=== PATIENT | male | born 1940 | race Caucasian/White ===

== ENCOUNTER 2016-08-31 17:37 | Inpatient (IN) | payer MEDICARE ==
[~2016-08-31] VITALS: Ht 180.3 cm; Wt 90.3 kg
[~2016-08-31 17:37] MED LIST: AMLO5TAB2 PO; ASPI-973 PO; ATOR20TA65 PO; CHOL200047 PO; CYA1000I IM; HAL5 PO; HYDR-4003 PO; LISI-567 PO; METO25TA6 PO; TERB250T4 PO
[2016-08-31 17:47] VITALS: BP 135/64; RESP 21; O2SAT 92
[2016-08-31 17:56] LABS: BASOPHILS % (AUTO) 0 % (0-3); EOSINOPHILS % (AUTO) 0.5 % (0-5); MONOCYTES % (AUTO) 4.4 % (4-12); Mean Corpuscular Hemoglobin 29.6 pg (27.0-35.0); Mean Corpuscular Volume 88.1 fL (81-100); NEUTROPHILS % (AUTO) 90.7 % (40-74); Platelet Count 250 bil/L (150-400)
--- NOTE | 2016-08-31 18:17 | DRSVH ---
PROCEDURE: X-RAY CHEST ONE VIEW, PORTABLE ([id number]) INDICATIONS: FEVER, SOB TECHNIQUE: One view of the chest was acquired. COMPARISON: [facility], CR, XR CHEST 1VW (PORTABLE), 07/05/2016, 17:06. FINDINGS: Surgical changes and devices: None. Lungs and pleura: No pleural effusions or pneumothorax. Lungs are clear. Mediastinum: Mediastinal contours appear normal. Heart size is normal. Bones and chest wall: No suspicious bony lesions. Overlying soft tissues appear unremarkable. IMPRESSION: No acute cardiopulmonary findings. Dictated by: Susie Rod M.D. on 08/31/2016 at 18:14 Approved by: Susie Rod M.D. on 08/31/2016 at 18:15
[2016-08-31 18:30] LABS: Magnesium 1.5 mg/dL (1.6-2.6)
--- NOTE | 2016-08-31 18:44 | ED.REPORT ---
HPI-Dyspnea / Wheezing Date of Service Aug 31, 2016 ED Provider: Geo Adames MD Pt is a 76 y.o. male with a hx of Pipestone's, [place], and HTN who presents to the ED via EMS accompanied by his from [facility] with a fever onset today. Associated cough and weakness. Pt denies chest pain or discomfort, nausea, sore throat, rhinorrhea, dysuria, and vomiting. states that she went to see him today while he was in speech therapy and the speech therapist noticed that he was diaphoretic. Nursing staff later noted a fever and called for transport to ED. states that pt's roommate has had a recent cough. Nursing Notes Stated Complaint: FEVER,HYPOXIA Chief Complaint: Respiratory Complaints Nursing Notes Reviewed: Yes ([employer] not reconciled) Allergies: Coded Allergies: morphine (Verified Allergy, Unknown, 08/31/16) niacin (Verified Allergy, Unknown, 08/31/16) Scheduled Amlodipine (Amlodipine) 5 Mg Tablet 10 MG PO DAILY Aspirin (Aspirin) 81 Mg Tablet 81 MG PO DAILY Atorvastatin Calcium (Atorvastatin Calcium) 20 Mg Tablet 20 MG PO HS Cholecalciferol (Vitamin D3) (Vitamin D3) 2,000 Unit Capsule 2,000 UNIT PO DAILY Cyanocobalamin (Cyanocobalamin Injection) 1,000 Mcg/1 Ml Vial 1,000 MCG IM Monthly Haloperidol (Haloperidol) 5 Mg Tablet 2.5 MG PO BID Lisinopril (Lisinopril) 20 Mg Tablet 20 MG PO BID Metoprolol Tartrate (Metoprolol Tartrate) 25 Mg Tablet 25 MG PO BID Terbinafine (Lamisil) 250 Mg Tablet 250 MG PO DAILY Scheduled PRN Hydrocodone-Acetaminophen 5-325 mg (Hydrocodone-Acetaminophen 5-325 mg) 1 Each Tablet 1-2 TABLET PO Q4H PRN PRN For Moderate Pain General Time Seen by MD: 17:56 Transferred From: prison Chief Complaint Other (Fever) Hx Obtained From: Patient, Spouse Arrived By: Ambulance Sudden in Onset?: Yes Onset Occurred: 1 - 4 hours ago Symptom Duration: Since onset Past Medical History 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 GI: Denies: Nausea, Vomiting Male: Denies Dysuria Physical Exam Initial Vital Signs Vital Signs (First) Date Time Temp Pulse Resp B/P Pulse Ox O2 Delivery O2 Flow Rate FiO2 08/31/16 17:47 40.1 21 135/64 92 Nasal Cannula 1.5 08/31/16 19:54 72 Initial VS: Reviewed, Vital signs abnormal Head / Eyes: Atraumatic, Normocephalic Extremities: Vascular intact Skin: Warm, Dry, No cyanosis General/Constitutional: Awake, Alert Appearance / Presentation: Positive: Ill appearing/not toxic Weak appearing Neck: Atraumatic Respiratory / Chest: Atraumatic Rales / Rhonchi: Positive: Rhonchi diffuse No dyspnea present during examination Cardiovascular: Heart rate NL, Regular rhythm, Heart sounds NL Lower Ext Edema: Positive: Pitting, Right 1+ Abdomen: Atraumatic, Soft, Non-tender, No distention Lower Extremity / Pelvis / MS: Atraumatic Left leg in splint following recent surgery Speech: Positive: Garbled (Baseline, due to Pipestone's) Pt is weak at baseline due to Dona's Interpretation & Diagnostics Lab Results Interpretation Result Diagram: 08/31/16172908/31/16 173 Test 08/31/16 17:30 08/31/16 17:45 08/31/16 20:00 White Blood Count 16.9th/mm3 (3.8-10.1) Red Blood Count 4.63mil/mm3 (4.40-5.80) Hemoglobin 13.7g/dL (13.8-17.2) Hematocrit 40.8% (41.0-50.0) Mean Corpuscular Volume 88.1fL (81-100) Mean Corpuscular Hemoglobin 29.6pg (27.0-35.0) Mean Corpuscular Hemoglobin Concent 33.6% (32.0-37.0) Red Cell Distribution Width 13.4% (12.3-15.4) Platelet Count 250bil/L (150-400) Neutrophils (%) (Auto) 90.7% (40-74) Lymphocytes (%) (Auto) 4.1% (14-46) Monocytes (%) (Auto) 4.4% (4-12) Eosinophils (%) (Auto) 0.5% (0-5) Basophils (%) (Auto) 0% (0-3) Sodium Level 141mEq/L (134-144) Potassium Level 4.1mEq/L (3.5-5.2) Chloride Level 103mEq/L (97-108) Carbon Dioxide Level 22mmol/L (18-29) Blood Urea Nitrogen 23mg/dL (8-27) Creatinine 1.13mg/dL (0.76-1.27) Estimat Glomerular Filtration Rate 67mL/min (>59) Glucose Level 143mg/dL (60-99) Calcium Level 8.6mg/dL (8.5-10.1) Total Bilirubin 0.5mg/dL (0.0-1.2) Aspartate Amino Transf (AST/SGOT) 12U/L (0-50) Alanine Aminotransferase (ALT/SGPT) 18U/L (0-44) Alkaline Phosphatase 139U/L (25-160) Total Protein 6.4g/dL (6.4-8.4) Albumin 3.6g/dL (3.4-5.0) D-Dimer 2.1mg/L (<0.50) Urine Color Yellow (YELLOW) Urine Appearance Cloudy (CLEAR,HAZY) Urine pH 6.0 (5.0-8.0) Urine Specific [place] 1.020 (1.003-1.035) Urine Protein 30mg/dL (NEG,TRACE) Urine Glucose (UA) Negativemg/dL (NEGATIVE) Urine Ketones Negativemg/dL (NEGATIVE) Urine Occult Blood Moderate (NEGATIVE) Urine Nitrite Positive (NEGATIVE) Urine Bilirubin Negative (NEGATIVE) Urine Urobilinogen Normalmg/dL (NORMAL) Urine Leukocyte Esterase Large (NEGATIVE) Urine RBC 3-10/hpf (0-2) Urine WBC >50/hpf (0-5) Urine Epithelial Cells Occasional/hpf (NONE-MOD) Urine Crystals None seen (NONE SEEN) Urine Bacteria Moderate/hpf (NONE-FEW) Urine Hyaline Casts None/lpf (NONE) Urine Granular Casts None seen (NONE SEEN) Urine Waxy Casts None seen (NONE SEEN) Urine Red Blood Cell Casts None seen (NONE SEEN) Urine White Blood Cell Casts None seen (NONE SEEN) Urine Mucus Present (None Seen) Urine Trichomonas None seen (NONE SEEN) Urine Yeast None (NONE SEEN) Urinalysis Comment None Urine Culture Reflexed Indicated Lab Results Interpretation: cBC positive leukocytosis CMP normal Influenza negative Blood cultures pending D-dimer positive Activity as significant General Lab Results Interp 1: Labs reviewed X-Ray Chest Interpretation Chest Xray Interpretation: IMPRESSION: No acute cardiopulmonary findings. Dictated by: Susie Rod M.D. on 08/31/2016 at 18:14 Approved by: Susie Rod M.D. on 08/31/2016 at 18:15 CT Chest Interpretation IMPRESSION: 1. No acute pulmonary embolus. 2. Masslike consolidation at the left lung base. Differential considerations include infection and neoplasm. Short interval followup is recommended. If clinically indicated, this lesion is likely amenable to CT-guided percutaneous biopsy. 3. Annuloaortic ectasia. This is corroborated by echocardiogram dated 07/06/16. Dictated by: Susie Rod M.D. on 08/31/2016 at 21:05 Approved by: Susie Rod M.D. on 08/31/2016 at 21:16 Re-Eval/Medical Decision Med Decision/Clinical Course This is a 76-year-old male was recently hospitalized for surgical repair of the left lower extremity fractures requiring a prison facility, he also has Dona's with as a mechanical diet. His reports he developed a cough recently, has a roommate with a hacking cough, and alkaline phosphatase fever and shortness of breath and global weakness. He is febrile, mildly hypoxic often but not hypotensive. He appears for telemetry fatigued and moderately ill. Does have swelling of both legs, his left legs in a splint. Chest x-ray did not reveal no overt abnormality per the radiologist. Blood work is no leukocytosis. He also has an elevated d-dimer, in the setting of recent surgery, immobility, hospitalization, leg swelling-a CT was obtained. Suspicious for pneumonia, although neoplasm cannot be excluded. The patient was covered with empiric antibiotics and given his hospitalization, prison facility stay, risk factors-he is being treated for healthcare associated pneumonia coverage, and is being admitted for continued management. The case have been discussed with the hospitalist. Source of Hx: Old records, EMS Consultation : Referral / Consult Name: Gloria Orellana MD Call Returned at: 19:42 Brim Flexer: Accepts admit Note: Discussed pt condition. Dr. Orellana accepts admit. She recommends zosyn, vancomycin, and levaquin. Counseled Regarding: Diagnosis, Lab results Discharge & Departure Impression: Primary Impression: Pneumonia Pneumonia type: due to unspecified organism Laterality: unspecified laterality Lung location: unspecified part of lung Qualified Code: B99.9 - Unspecified infectious disease Additional Impressions: Cough Fever Fever type: unspecified Qualified Code: R50.9 - Fever, unspecified Disposition: ADMITTED TO HOSPITAL Discharge Condition All VS Reviewed: Yes Condition: Stable Referrals: Michael Spencer MD (PCP) Scribe Attestation Portions of this note were transcribed by Jacinto Voss. I, Dr. Adames personally performed the history, physical exam and medical decision-making; I reviewed and confirmed the accuracy of the information in the transcribed note. Signed by: Rylee Roes, 08/31/2016 and 2126. copies to: Michael Spencer MD, Matthew F MD Aug 31, 2016 18:44 JACINTO VOSS Aug 31, 2016 18:55
[2016-08-31 18:54] LABS: TROPONIN T < 0.010 ug/L (0.0-0.011)
[2016-08-31] MEDS ORDERED: cefTRIAXone Inj 2,000 MG in Dextrose 5% Minibag Plus 50 ML IV ONE (19:10)
[2016-08-31] MEDS ORDERED: Magnesium Sulf 2 Gm/50mL Water 2 GM in IV Premix 1 EACH IV ONE (19:20)
[2016-08-31] MEDS ORDERED: Vancomycin Dose per Pharmacist XX ONE (19:45)
[2016-08-31] MEDS ORDERED: Piperacillin-Tazo 3.375 Gm Inj 3.375 GM in Dextrose 5% Minibag Plus 50 ML IV ONE (19:45)
[2016-08-31] MEDS ORDERED: levoFLOXacin Inj 500 MG in IV Premix 1 EACH IV ONE (19:45)
[2016-08-31 19:54] VITALS: BP 121/60; PULSE 72; RESP 25; O2SAT 94
--- NOTE | 2016-08-31 19:59 | PCM.CONPHA ---
Subjective Requesting Provider: Geo Adames MD Reason for Pharmacy Consult: Vancomycin Dosing Assessment/Plan Assessment/Plan Vancomycin per pharmacy for HCAP in [facility] resident in conjunction with Zosyn and levofloxacin in the ER setting. Vancomycin 20mg/kg xrhceca=1040wa IV x 1. Wt=90K. Pharmacy will follow if vancomycin is continued as inpatient. Jasmina Mcpherson [facility] Aug 31, 2016 19:59
[2016-08-31] MEDS ORDERED: Vancomycin Inj 1,750 MG in 0.9% Sodium Chloride 500 ML IV ONE (20:00)
[2016-08-31] MEDS ORDERED: Albuterol 2.5 mg/3 mL Inhalation Solution NEB PRN (20:45)
[2016-08-31 20:58] VITALS: BP 104/58; PULSE 76; RESP 21; O2SAT 95
--- NOTE | 2016-08-31 21:09 | PCM.HPMED ---
Subjective Date of Service Aug 31, 2016 Primary Provider: Admitting Physician: Gloria Orellana MD Primary Care Physician: Michael Spencer MD Attending Physician: Gloria Orellana MD Admit Status: From the Emergency Department, Full Admit, [facility] Telemetry Chief Complaint: Fevers cough History of Present Illness: This is a 76-year-old male who has a history of [place]'s chorea, [place] hypertension who presented to the emergency room from [facility]. He had a fever today also over the past 2 days has been having cough with increasing lethargy and weakness. Patient denies any chest pain. Denies any head congestion or postnasal drainage. notes that he has a [facility]mate [facility] who recently has been having similar symptoms with a cough. Patient to get a flu shot this year. His evaluation in the emergency room includes a white count of 16.9 with 91% polys chest x-ray at this point did not show any acute abnormalities. His fever was up to 40.1 O2 sat was 92% on 1.5 L nasal cannula with a respiratory rate of 21 and a blood pressure 135/64. Review of Systems: All other review of systems reviewed and are negative except for as in history of present illness Allergies Coded Allergies: morphine (Verified Allergy, Unknown, 08/31/16) niacin (Verified Allergy, Unknown, 08/31/16) Home Medications Scheduled Amlodipine (Amlodipine) 5 Mg Tablet 10 MG PO DAILY Aspirin (Aspirin) 81 Mg Tablet 81 MG PO DAILY Atorvastatin Calcium (Atorvastatin Calcium) 20 Mg Tablet 20 MG PO HS Cholecalciferol (Vitamin D3) (Vitamin D3) 2,000 Unit Capsule 2,000 UNIT PO DAILY Cyanocobalamin (Cyanocobalamin Injection) 1,000 Mcg/1 Ml Vial 1,000 MCG IM Monthly Haloperidol (Haloperidol) 5 Mg Tablet 2.5 MG PO BID Lisinopril (Lisinopril) 20 Mg Tablet 20 MG PO BID Metoprolol Tartrate (Metoprolol Tartrate) 25 Mg Tablet 25 MG PO BID Terbinafine (Lamisil) 250 Mg Tablet 250 MG PO DAILY Scheduled PRN Hydrocodone-Acetaminophen 5-325 mg (Hydrocodone-Acetaminophen 5-325 mg) 1 Each Tablet 1-2 TABLET PO Q4H PRN PRN For Moderate Pain PMH [place] 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 1970's OCD Reports: Hypertension Past Surgical History Prostate CA removal Reports: Appendectomy Recent left tib-fib fracture requiring surgical repair in June 2016 Social History Hx Alcohol Use: Yes (STOPPED IN 1965) Hx Substance Use: No Smoking Status: Former Smoker Living Arrangement: Long Term Facility Exam Vital Signs Vital Sign - Last Date Time Temp Pulse Resp B/P Pulse Ox O2 Delivery O2 Flow Rate FiO2 08/31/16 20:08 38.3 08/31/16 19:54 72 25 121/60 94 Nasal Cannula 2 Exam Constitutional: Elderly man in no respiratory distress with cough Head: Normocephalic and dramatic Eyes: PERRLA C Mouth: Dry mucosa Neck: No adenopathy Chest: Diffuse rhonchi Cor: Regular rate and rhythm S1-S2 Abdomen: Soft nontender bowel sounds present Skin: No rashes Psych: Difficult to assess Neuro: He is alert oriented 3 but does have speech difficulty secondary to his Dona's and is diffusely weak secondary to Dona's and currently seems to be at baseline per . Lab and Diagnostics Labs Laboratory Tests 72 Hours Test 08/31/16 17:30 08/31/16 17:45 08/31/16 18:38 White Blood Count 16.9th/mm3 (3.8-10.1) Red Blood Count 4.63mil/mm3 (4.40-5.80) Hemoglobin 13.7g/dL (13.8-17.2) Hematocrit 40.8% (41.0-50.0) Mean Corpuscular Volume 88.1fL (81-100) Mean Corpuscular Hemoglobin 29.6pg (27.0-35.0) Mean Corpuscular Hemoglobin Concent 33.6% (32.0-37.0) Red Cell Distribution Width 13.4% (12.3-15.4) Platelet Count 250bil/L (150-400) Neutrophils (%) (Auto) 90.7% (40-74) Lymphocytes (%) (Auto) 4.1% (14-46) Monocytes (%) (Auto) 4.4% (4-12) Eosinophils (%) (Auto) 0.5% (0-5) Basophils (%) (Auto) 0% (0-3) Sodium Level 141mEq/L (134-144) Potassium Level 4.1mEq/L (3.5-5.2) Chloride Level 103mEq/L (97-108) Carbon Dioxide Level 22mmol/L (18-29) Blood Urea Nitrogen 23mg/dL (8-27) Creatinine 1.13mg/dL (0.76-1.27) Estimat Glomerular Filtration Rate 67mL/min (>59) Glucose Level 143mg/dL (60-99) Calcium Level 8.6mg/dL (8.5-10.1) Magnesium Level 1.5mg/dL (1.6-2.6) Total Bilirubin 0.5mg/dL (0.0-1.2) Aspartate Amino Transf (AST/SGOT) 12U/L (0-50) Alanine Aminotransferase (ALT/SGPT) 18U/L (0-44) Alkaline Phosphatase 139U/L (25-160) Troponin T < 0.010ug/L (0.0-0.011) Total Protein 6.4g/dL (6.4-8.4) Albumin 3.6g/dL (3.4-5.0) D-Dimer 2.1mg/L (<0.50) Lactic Acid Level 1.4mmol/L (0.4-2.0) Result Diagram: 08/31/16 1730 08/31/16 1730 X-Rays, CTs and MRIs PROCEDURE: X-RAY CHEST ONE VIEW, PORTABLE ([id number]) INDICATIONS: FEVER, SOB TECHNIQUE: One view of the chest was acquired. COMPARISON: [facility], CR, XR CHEST 1VW (PORTABLE), 07/05/2016, 17 :06. FINDINGS: Surgical changes and devices: None. Lungs and pleura: No pleural effusions or pneumothorax. Lungs are clear. Mediastinum: Mediastinal contours appear normal. Heart size is normal. Bones and chest wall: No suspicious bony lesions. Overlying soft tissues appear unremarkable. IMPRESSION: No acute cardiopulmonary findings. Dictated by: Susie Rod M.D. on 08/31/2016 at 18:14 Approved by: Susie Rod M.D. on 08/31/2016 at 18:15 12-lead ECG Pending at the time of this dictation Assessment & Plan # Respiratory distress with hypoxia, acute, present on admission Most likely secondary to pneumonia given fever will place on IV Levaquin, vancomycin, Zosyn This regimen is chosen to cover both aspiration and healthcare associated pneumonia given the fact he was hospitalized here in June and also lives in a intermediate facility Check sputum studies, PCR viral, PCR mycoplasma and chlamydia We will also treat with albuterol nebs when necessary. O2 support as needed # Sepsis, acute, present on admission Meets criteria by temperature of 40.1, elevated white count of 16.9 Most likely secondary to pneumonia given his current cough which may be due to aspiration versus healthcare associated pneumonia We will also check blood cultures 2 Check urine for UA micro and culture indicated Check serial cardiac enzymes and lactic acid levels # Hypertension, chronic, present on admission Vital visit anti-hypertensive medication for now and monitor blood pressures # DVT prophylaxis Placed on subcutaneous Lovenox # CODE STATUS Full code Time spent 60 minutes Gloria Orellana MD Aug 31, 2016 21:09
--- NOTE | 2016-08-31 21:17 | DRSVH ---
PROCEDURE: CT ANGIO CHEST PULMONARY EMBOLISM ([id number]) INDICATIONS: Fever, SOB, Dimer +, s/p leg surgery, CXR neg TECHNIQUE: After the administration of intravenous contrast, 2 mm thick sections acquired from the pulmonary api valerio to the posterior costophrenic angles. 3-dimensional maximum intensity projection (MIP) coronal a nd sagittal reformats were then acquired through the thorax. For radiation dose reduction, the follo wing was used: automated exposure control, adjustment of mA and/or kV according to patient size. COMPARISON: [facility], CT, KUB - CT ([facility]), 08/24/2009, 16:15. FINDINGS: Image quality: Excellent. Pulmonary arteries: Pulmonary arteries are normal in size, and demonstrate no intraluminal filling d efects to suggest central pulmonary embolism. Lungs and pleura: Atelectasis present at the bilateral lung bases. A consolidative mass is present at the left lung base which measures 1.9 x 1.2 cm in axial diameter (series 5, image 44). Mediastinum: Heart size is normal, without pericardial effusion. The aortic root measures 4.4 cm in oblique axial diameter (series 4, image 73). No mediastinal or hilar adenopathy. Thoracic aorta is normal in caliber and enhancement. Scattered atheromatous calcifications are present within the aorti c arch. Esophagus is normal in caliber, without hiatal hernia. Bones and chest wall: No suspicious bony lesions. Ribs and thoracic spine appear intact throughout. Thyroid gland is unremarkable. No axillary or supraclavicular adenopathy. Abdomen: Visualized upper abdominal solid organs appear normal in the early arterial phase of enhanc ement. IMPRESSION: 1. No acute pulmonary embolus. 2. Masslike consolidation at the left lung base. Differential considerations include infection and ne oplasm. Short interval followup is recommended. If clinically indicated, this lesion is likely amenab le to CT-guided percutaneous biopsy. 3. Annuloaortic ectasia. This is corroborated by echocardiogram dated 07/06/16. Dictated by: Susie Rod M.D. on 08/31/2016 at 21:05 Approved by: Susie Rod M.D. on 08/31/2016 at 21:16
[2016-08-31 21:23] VITALS: BP 102/63; PULSE 74; RESP 18; O2SAT 95
[2016-08-31 21:30] VITALS: PULSE 69; RESP 16; O2SAT 95
[2016-08-31 22:08] LABS: TROPONIN T 0.01 ug/L (0.0-0.011)
[2016-08-31] MEDS: Famotidine Inj 20 MG in IV Premix 1 EACH IV SCH (22:08)
[2016-08-31] MEDS: 0.9% Sodium Chloride 1,000 ML IV SCH (22:09)
[2016-08-31 22:19] LABS: Magnesium 1.8 mg/dL (1.6-2.6)
[2016-08-31 22:21] LABS: APPEARANCE,URINE CLOUDY (CLEAR,HAZY); COLOR,URINE YELLOW (YELLOW); OCCULT BLOOD,URINE MODERATE (NEGATIVE); UROBILINOGEN,URINE NORMAL (NORMAL)
[2016-08-31 22:59] VITALS: BP 113/61; PULSE 74; RESP 18; O2SAT 97
[2016-09-01] VITALS (8 sets, daily range): BP systolic 133–150; BP diastolic 69–85; PULSE 67–107; RESP 16–24; O2SAT 95–98
--- NOTE | 2016-09-01 00:06 | NUR ---
Admission Patient admitted to [facility] 2002 at 2115, accompanied by his sister. 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 Admission documentation completed with assistance from patient's sister. Mag rider completed, vancomycin IV and NS running. Patient on 2L O2 via nasal cannula; coarse breath sounds throughout with an intermittent wet-sounding cough. Continue to monitor.
--- NOTE | 2016-09-01 00:08 | PCM.CONPHA ---
Subjective Date of Service: Sep 01, 2016 Fevers cough Reason for Pharmacy Consult: Vancomycin Dosing Objective Vital Signs Date Time Temp Pulse Resp B/P Pulse Ox O2 Delivery O2 Flow Rate FiO2 08/31/16 22:59 36.7 74 18 113/61 97 Room Air 08/31/16 21:30 69 16 95 Nasal Cannula 2.00 08/31/16 21:23 36.7 74 18 102/63 95 Nasal Cannula 2.00 08/31/16 20:58 76 21 104/58 95 Nasal Cannula 2 08/31/16 20:08 38.3 08/31/16 19:54 72 25 121/60 94 Nasal Cannula 2 08/31/16 17:47 40.1 21 135/64 92 Nasal Cannula 1.5 Intake and Output 08/30/16 08/31/16 09/01/16 00:00 00:00 00:00 Intake Total 1000 ml Balance 1000 ml Weight (Kilograms): 85.700 Height (Feet): 5 Height (Inches): 11.00 Test 08/31/16 17:30 08/31/16 17:45 08/31/16 20:00 08/31/16 21:20 White Blood Count 16.9th/mm3 (3.8-10.1) Red Blood Count 4.63mil/mm3 (4.40-5.80) Hemoglobin 13.7g/dL (13.8-17.2) Hematocrit 40.8% (41.0-50.0) Mean Corpuscular Volume 88.1fL (81-100) Mean Corpuscular Hemoglobin 29.6pg (27.0-35.0) Mean Corpuscular Hemoglobin Concent 33.6% (32.0-37.0) Red Cell Distribution Width 13.4% (12.3-15.4) Platelet Count 250bil/L (150-400) Neutrophils (%) (Auto) 90.7% (40-74) Lymphocytes (%) (Auto) 4.1% (14-46) Monocytes (%) (Auto) 4.4% (4-12) Eosinophils (%) (Auto) 0.5% (0-5) Basophils (%) (Auto) 0% (0-3) Sodium Level 141mEq/L (134-144) Potassium Level 4.1mEq/L (3.5-5.2) Chloride Level 103mEq/L (97-108) Carbon Dioxide Level 22mmol/L (18-29) Blood Urea Nitrogen 23mg/dL (8-27) Creatinine 1.13mg/dL (0.76-1.27) Estimat Glomerular Filtration Rate 67mL/min (>59) Glucose Level 143mg/dL (60-99) Calcium Level 8.6mg/dL (8.5-10.1) Total Bilirubin 0.5mg/dL (0.0-1.2) Aspartate Amino Transf (AST/SGOT) 12U/L (0-50) Alanine Aminotransferase (ALT/SGPT) 18U/L (0-44) Alkaline Phosphatase 139U/L (25-160) Total Protein 6.4g/dL (6.4-8.4) Albumin 3.6g/dL (3.4-5.0) D-Dimer 2.1mg/L (<0.50) Urine Color Yellow (YELLOW) Urine Appearance Cloudy (CLEAR,HAZY) Urine pH 6.0 (5.0-8.0) Urine Specific [place] 1.020 (1.003-1.035) Urine Protein 30mg/dL (NEG,TRACE) Urine Glucose (UA) Negativemg/dL (NEGATIVE) Urine Ketones Negativemg/dL (NEGATIVE) Urine Occult Blood Moderate (NEGATIVE) Urine Nitrite Positive (NEGATIVE) Urine Bilirubin Negative (NEGATIVE) Urine Urobilinogen Normalmg/dL (NORMAL) Urine Leukocyte Esterase Large (NEGATIVE) Urine RBC 3-10/hpf (0-2) Urine WBC >50/hpf (0-5) Urine Epithelial Cells Occasional/hpf (NONE-MOD) Urine Crystals None seen (NONE SEEN) Urine Bacteria Moderate/hpf (NONE-FEW) Urine Hyaline Casts None/lpf (NONE) Urine Granular Casts None seen (NONE SEEN) Urine Waxy Casts None seen (NONE SEEN) Urine Red Blood Cell Casts None seen (NONE SEEN) Urine White Blood Cell Casts None seen (NONE SEEN) Urine Mucus Present (None Seen) Urine Trichomonas None seen (NONE SEEN) Urine Yeast None (NONE SEEN) Urinalysis Comment None Urine Culture Reflexed Indicated Magnesium Level 1.8mg/dL (1.6-2.6) Troponin T 0.010ug/L (0.0-0.011) Procalcitonin 3.72ng/mL (0.00-0.08) Test 08/31/16 23:52 Assessment/Plan Assessment/Plan A: * Vancomycin dosing by pharmacy for 76 y/o man with sepsis likely secondary to pneumonia * The patient received a vancomycin 1750 mg IV loading dose in the ED * He is also being started on Levaquin and Zosyn * Estimated CrCl is 57 mL/min (Cockcroft & Gault) * Estimated vancomycin half-life is 13 hours and estimated Vd is 60 liters P: * Starting vancomycin 750 mg IV every 12 hours * Target trough range of 15 - 20 mcg/mL * Drawing a trough level prior to the fourth vancomycin dose Thank you. Pharmacy will continue to follow. Anju Dodson, PharmD Anju Dodson Sep 01, 2016 00:08
[2016-09-01] MEDS: Piperacillin-Tazo 3.375 Gm Inj 3.375 GM in Dextrose 5% Minibag Plus 50 ML IV SCH ×3 (01:18→16:34)
[2016-09-01 03:15] LABS: BASOPHILS % (AUTO) 0.1 % (0-3); EOSINOPHILS % (AUTO) 0.1 % (0-5); MONOCYTES % (AUTO) 4.1 % (4-12); Mean Corpuscular Hemoglobin 29.9 pg (27.0-35.0); NEUTROPHILS % (AUTO) 89.7 % (40-74); Platelet Count 217 bil/L (150-400)
[2016-09-01 03:29] LABS: TROPONIN T 0.01 ug/L (0.0-0.011)
[2016-09-01] MEDS: Famotidine Inj 20 MG in IV Premix 1 EACH IV SCH ×2 (08:22→20:16)
[2016-09-01] MEDS: levoFLOXacin Inj 750 MG in IV Premix 1 EACH IV SCH (08:22)
[2016-09-01] MEDS: Vancomycin Dose per Pharmacist XX SCH (08:30)
[2016-09-01] MEDS ORDERED: ACET325T51 PO (08:46)
[2016-09-01] MEDS: 0.9% Sodium Chloride 1,000 ML IV SCH ×2 (08:51→18:37)
[2016-09-01] MEDS: Vancomycin Inj 750 MG in 0.9% Sodium Chloride 250 ML IV SCH ×2 (10:48→22:15)
[2016-09-01] MEDS ORDERED: Polyethylene Glycol (PEG) 17 Gm Powder PO PRN (11:50)
--- NOTE | 2016-09-01 13:38 | NUR ---
Social Work-initial assessment: Data & Assessment: See initial assessment. Pt is a 76 y/o male who was admitted on 08/31/16 for pneumonia and sepsis per H & P. Patient is 3-high risk. SW met with patient and patients sister, Bhavya Parkinson [phone], to complete initial assessment, discuss discharge planning and Social Work role explained. Pt was in and out of sleep at time of assessment. Patient was a patient at [facility] prior to admitting. Pt has a walker, wheel-chair and bedside commode. Patient does not drive. Pt has no HH. Pt has completed DPOA/ advanced directive and social security specialist requested a copy. Patient states that his sister Bhavya [place] is his DPOA. Pt has no [facility] care or [facility] benefits. Patient plans to discharge to [facility]. SW provided phone number and plan on white board in room. SW will continue to follow. Plan: Pt to likely discharge to [facility]. [facility] was given access and patient paperwork is on the chart. Pt's family is supportive. SW will continue to follow. Forrest Banda LMSW, PAMELA Addendum: 09/01/16 at 1351 by FORREST BANDA Amended: Links added.
--- NOTE | 2016-09-01 13:42 | NUR ---
Evaluation completed. Please go to "Notes" then click on "Assessments and Notes" (bottom left corner of screen). Then select appropriate discipline tab on top of screen.
--- NOTE | 2016-09-01 16:21 | PCM.PNMED ---
Subjective Date of Service Sep 01, 2016 Subjective Today, the patient reports weakness, nonproductive cough, confusion, and constipation. His states he appears to have more memory problems and slurred speech than normal, although he has difficulties at baseline. He denies chest pain, shortness of breath, wheezing, fevers, chills nausea, vomiting, or diarrhea. He denies no new weakness but reports chronic right arm and leg weakness. Exam Vital Signs Vital Sign - Last Date Time Temp Pulse Resp B/P Pulse Ox O2 Delivery O2 Flow Rate FiO2 09/01/16 16:03 37.0 76 24 133/69 95 Room Air 09/01/16 03:21 2.00 Intake and Output 08/31/16 08/31/16 09/01/16 Cumulative From/Thru 15:00 23:00 07:00 08/31/16 17:47 - 09/01/16 05:43 Intake Total 1000 ml 1312 ml 2312 ml Output Total 600 ml 600 ml Balance 1000 ml 712 ml 1712 ml Intake Oral 0 ml 0 ml IV Total 1000 ml 1312 ml 2312 ml Output Urine Total 600 ml 600 ml # Bowel Movements 0 0 Exam General: Alert, Oriented X3, Cooperative, No Acute Distress Head: Normocephalic, atraumatic. External ears normal. Eyes: PERRLA, EOMI. Anicteric sclerae. Mouth: Mouth Normal, Mucous Membranes Dry Neck: Neck supple with full range of motion. Chest & Lungs: Clear to auscultation bilaterally with no crackles, wheezes, or rhonchi. Cardiovascular: Regular Rate/Rhythm, Normal S1, Normal S2, No Murmurs/Rubs/ Gallops Abdomen: Non-tender, Non-distended, No masses, Normoactive bowel tones, Soft Musculoskeletal: Normal Range of Motion Extremities: No cyanosis/clubbing/edema bilaterally Neurological: Slightly slurred speech, right arm and leg weakness, generalized weakness. Lab and Diagnostics Result Diagram: 09/01/1623909/01/16239 X-Rays, CTs and MRIs PROCEDURE: X-RAY CHEST ONE VIEW, PORTABLE ([id number]) INDICATIONS: FEVER, SOB TECHNIQUE: One view of the chest was acquired. COMPARISON: [facility], CR, XR CHEST 1VW (PORTABLE), 07/05/2016, 17 :06. FINDINGS: Surgical changes and devices: None. Lungs and pleura: No pleural effusions or pneumothorax. Lungs are clear. Mediastinum: Mediastinal contours appear normal. Heart size is normal. Bones and chest wall: No suspicious bony lesions. Overlying soft tissues appear unremarkable. IMPRESSION: No acute cardiopulmonary findings. Dictated by: Susie Rod M.D. on 08/31/2016 at 18:14 Approved by: Susie Rod M.D. on 08/31/2016 at 18:15 12-lead ECG Pending at the time of this dictation Assessment & Plan Mr. Alan Orozco is a 76 year old male with history of Dona's, [place], and hypertension who presents from [facility] for a fever of 2 days, coughing, lethargy, and weakness. Admitted for possible pneumonia. 1. Sepsis, acute, present on admission - Meets criteria by temperature of 40.1, elevated white count of 16.9. Most likely secondary to pneumonia given his current cough which may be due to aspiration versus healthcare associated pneumonia. However UTI is also possible. Blood cultures showed Gram variable rods. Urine culture negative but UA showed >50 WBC. Lactic acid 1.1. Procalcitonin 7.12. - NS at 100 ml/hr - Continue to monitor CBC 2. Possible pneumonia, acute. - CXR was negative but CT angio of chest showed masslike consolidation at the left lung base, pneumonia vs mass. Given his fever, we will place on antibiotics to cover both aspiration and healthcare associated pneumonia given the fact he was hospitalized here in June and also lives in a group home facility. Viral PCR was negative. - IV Levaquin, Vancomycin, Zosyn - MRSA screen pending. - Albuterol nebs when necessary. - O2 support as needed 3. Possible lung mass. - CXR reading as above. - Will require follow up CT with contrast outpatient 3. Hypertension, chronic, present on admission - Hold anti-hypertensive medication for now and monitor blood pressures VTE Prophylaxis: Sub-Q Enoxaparin Resuscitation Status: CPR: Attempt Resuscitation Attending Statement The patient was seen and examined together with Dr. Camacho on 09/01/2016 and I agree with the history, exam and plan as outlined in the note above. . Gerald Camacho Sep 01, 2016 16:21 Adarsh Henderson MD Sep 04, 2016 09:29
--- NOTE | 2016-09-01 18:18 | NUR ---
GI/Diet/Activity Pt c/o not having BM for several days. Administered PO miralax and Senna. With dinner gave patient prune juice as requested. Pt's sister (caregiver) states that he has not had a BM in several days. Pt upgraded from NPO to dysphagia mechanical with honey thick liquids per speech therapy. Pt tolerating diet well. Pt can feed himself but tends to take very large bites and should be 1:1 feed when his sister is not present. Pt up to [facility] this AM with 2 person assist. Pt is non weightbearing on left leg per his surgeons orders. Pt can pivot turn on right leg to transfer to [facility].
[2016-09-02] VITALS (9 sets, daily range): BP systolic 146–164; BP diastolic 54–79; PULSE 73–103; RESP 16–24; O2SAT 94–98
[2016-09-02] MEDS: Piperacillin-Tazo 3.375 Gm Inj 3.375 GM in Dextrose 5% Minibag Plus 50 ML IV SCH ×3 (00:40→16:53)
--- NOTE | 2016-09-02 03:15 | NUR ---
Blood Cultures Patient has positive blood culture in bottle 2/4, gram negative rods. Same as prior positive blood culture result. Continue monitoring.
[2016-09-02 03:35] LABS: BASOPHILS % (AUTO) 0.1 % (0-3); EOSINOPHILS % (AUTO) 0.2 % (0-5); Mean Corpuscular Hemoglobin 29.1 pg (27.0-35.0); Mean Corpuscular Volume 89.3 fL (81-100); Platelet Count 189 bil/L (150-400)
[2016-09-02] MEDS: 0.9% Sodium Chloride 1,000 ML IV SCH ×2 (03:58→14:38)
--- NOTE | 2016-09-02 06:13 | NUR ---
Rest/Oxygen Patient sleeping well overnight. Single episode of desaturation to 80% SpO2; resolved quickly with application of oxymask 3L. Patient continually pulling mask off in his sleep. Positioned mask near patient's face for blow-by. Maintaining SpO2 96-97%. Continue to monitor.
--- NOTE | 2016-09-02 06:49 | NUR ---
RSV Patient's respiratory viral panel resulted positive for RSV. Continue droplet precautions.
[2016-09-02] MEDS: Vancomycin Dose per Pharmacist XX SCH (08:30)
[2016-09-02] MEDS: Famotidine Inj 20 MG in IV Premix 1 EACH IV SCH ×2 (09:22→20:20)
[2016-09-02] MEDS: levoFLOXacin Inj 750 MG in IV Premix 1 EACH IV SCH (09:30)
[2016-09-02] MEDS ORDERED: Vancomycin Serum Trough XX ONE (09:30)
[2016-09-02] MEDS: Vancomycin Inj 750 MG in 0.9% Sodium Chloride 250 ML IV SCH (10:50)
--- NOTE | 2016-09-02 13:43 | NUR ---
Evaluation completed. Please go to "Notes" then click on "Assessments and Notes" (bottom left corner of screen). Then select appropriate discipline tab on top of screen.
--- NOTE | 2016-09-02 15:34 | NUR ---
NUTRITION ASSESSMENT Assess: Pt is a 76 yo male admitted w/ pneumonia and sepsis. Pt is on a soft diet w/ HTL at [facility], his current place of residence. Upon evaluation on 09/01, ST recommended dysphagia mechanical diet w/ HTL. Per family and pt, pt had a difficult time w/ texture of dysphagia mechanical diet at dinner. ST downgraded diet to puree w/ HTL d/t aspiration concerns. Pt on oxymask as needed. PMHx: PR, Huntingtons chorea, Paranoid schizophrenia, OCD, HTN, Prostate CA removal, Appendectomy, recent left tib/fib fracture requiring surgical repair LABS: K 3.4, Gluc 109, Ca 7.6, Alb 2.6 MEDICATIONS: Senna DIET: Puree w/ HTL. Cottage cheese approved. PO 25% x 1 meal GI symptoms/stool: 0 BM noted. SKIN: Semaj 15 ANTHROPOMETRICS: Current Wt: 89.4 kg BMI: 27.5 kg/m2 IBW: 75.3 kg ESTIMATED NEEDS: Calories: 8457-2195 kcal/day (25-30 kcal/kg BW) Protein: 90-105 g/day (0.8-1.0 g/kg BW) NUTRITION DIAGNOSIS: 1) Chew/swallow difficulties related to chronic dysphagia as evidenced by ST recommendation for altered texture diet and family and pt request for pureed diet. INTERVENTION: 1) Add Gelatein Plus to pt trays TID. MONITOR/EVALUATE: Diet tolerance, PO intake, GI, medications, nutrition status, POC. Will continue to monitor per moderate nutritional risk guidelines. Addendum: 09/02/16 at [address] Student documentation reviewed and I agree with above note. HARINDERG.
--- NOTE | 2016-09-02 18:36 | NUR ---
Diet Per pt and family request, pt swallow reevaluated. Pt downgraded to puree with honey thick liquids. Pt tolerating diet much better than dysph/mech. Pt has no signs symptoms of aspiration, no coughing with meals. Pt states that he is much happier with his food and it is much easier for him to swallow. GI/: Pt has occasional urinary incontinence, Pt is able to request to use urinal, but is not always able to wait for placement. Pt was incontinent of bowel x2 on shift. States that he is having a hard time knowing and controlling when he has a bowel movement.
--- NOTE | 2016-09-02 22:20 | PCM.PNMED ---
Subjective Date of Service Sep 02, 2016 Subjective Overnight events: Patient reportedly choked on his hamburger and may have aspirated. Today, The patient reports weakness, nonproductive cough. His sister states he appears to have more memory problems and slurred speech than normal, although he has difficulties at baseline. Sister also report patient has history of aspiration and bad periodontal disease. He denies chest pain, shortness of breath, wheezing, fevers, chills nausea, vomiting, or diarrhea. He denies no new weakness but reports chronic right arm and leg weakness. Exam Vital Signs Vital Sign - Last Date Time Temp Pulse Resp B/P Pulse Ox O2 Delivery O2 Flow Rate FiO2 09/02/16 16:50 Supplement Oxygen 09/02/16 16:02 36.9 91 16 152/72 97 09/01/16 03:21 2.00 Intake and Output 09/01/16 09/01/16 09/02/16 Cumulative From/Thru 15:00 23:00 07:00 08/31/16 17:47 - 09/02/16 06:12 Intake Total 300 ml 1905 ml 1623 ml 6140 ml Output Total 375 ml 400 ml 1375 ml Balance 300 ml 1530 ml 1223 ml 4765 ml Intake Oral 452 ml 100 ml 552 ml IV Total 300 ml 1453 ml 1523 ml 5588 ml Output Urine Total 375 ml 400 ml 1375 ml # Voids 2 1 3 # Bowel Movements 0 0 Exam General: Alert, Oriented X3, Cooperative, No Acute Distress Head: Normocephalic, atraumatic. External ears normal. Eyes: PERRLA, EOMI. Anicteric sclerae. Mouth: Mouth Normal, Mucous Membranes Dry Neck: Neck supple with full range of motion. Chest & Lungs: Clear to auscultation bilaterally with no crackles, wheezes, or rhonchi. Cardiovascular: Regular Rate/Rhythm, Normal S1, Normal S2, No Murmurs/Rubs/ Gallops Abdomen: Non-tender, Non-distended, No masses, Normoactive bowel tones, Soft Musculoskeletal: Normal Range of Motion Extremities: No cyanosis/clubbing/edema bilaterally Neurological: Slightly slurred speech, right arm and leg weakness, generalized weakness. IVs and Medications Medications Reviewed: Medications were reviewed in detail Lab and Diagnostics Result Diagram: 09/02/16 0302 09/02/16 0302 X-Rays, CTs and MRIs PROCEDURE: X-RAY CHEST ONE VIEW, PORTABLE ([id number]) INDICATIONS: FEVER, SOB TECHNIQUE: One view of the chest was acquired. COMPARISON: [facility], CR, XR CHEST 1VW (PORTABLE), 07/05/2016, 17 :06. FINDINGS: Surgical changes and devices: None. Lungs and pleura: No pleural effusions or pneumothorax. Lungs are clear. Mediastinum: Mediastinal contours appear normal. Heart size is normal. Bones and chest wall: No suspicious bony lesions. Overlying soft tissues appear unremarkable. IMPRESSION: No acute cardiopulmonary findings. Dictated by: Susie Rod M.D. on 08/31/2016 at 18:14 Approved by: Susie Rod M.D. on 08/31/2016 at 18:15 12-lead ECG Pending at the time of this dictation Assessment & Plan Mr. Alan Orozco is a 76 year old gentleman with history of Hendricks's, [place] , and hypertension who presents from [facility] for a fever of 2 days, coughing , lethargy, and weakness. Admitted for possible pneumonia. 1. Sepsis, acute, present on admission. Improving. - Meets criteria by temperature of 40.1, elevated white count of 16.9. Most likely secondary to pneumonia given his current cough which may be due to aspiration versus healthcare associated pneumonia. However UTI is also possible. Blood cultures showed Gram variable rods. Urine culture negative but UA showed >50 WBC. Lactic acid 1.1. Procalcitonin 7.12. - NS at 100 ml/hr - Continue to monitor CBC 2. Acute pneumonia, present on admission, active. - CXR was negative but CT angio of chest showed masslike consolidation at the left lung base, pneumonia vs mass. Given his fever, we will place on antibiotics to cover both aspiration and healthcare associated pneumonia given the fact he was hospitalized here in June and also lives in a residential facility. Viral PCR was negative. Hx of aspiration and periodontal disease. - IV Levaquin, Zosyn - MRSA screen negative. - Vancomycin discontinued. - Albuterol nebs when necessary. - O2 support as needed - Speech consulted. Diet changed to puree. 3. Possible lung mass. present on admission. Active. - CXR reading as above. - Will require follow up CT with contrast outpatient 4. Hypertension, chronic, present on admission. Active. - Will resume home medications likely tomorrow. - Metoprolol 50 mg BID - Lisinopril 20 mg Daily. 5. Latent Hendricks's Disease. 6. Left Tibial fx. - Non weight bearing - PT following. Acetaminophen for mild pain when necessary. Bowel regimen Senna and MiraLAX scheduled and PRN. Zofran when necessary for nausea and vomiting. SubQ heparin held for now. SCDs in place. High-risk medications: Warfarin Disposition: Likely here for > 2 midnights. Dependent upon infectious status. Will be discharged to [facility] when medically stable. Pain Evaluation: Adequate Pain Control VTE Prophylaxis: Sub-Q Enoxaparin Resuscitation Status: CPR: Attempt Resuscitation Attending Statement The patient was seen and examined together with Dr. Roldan on 09/02/2016 and I agree with the history, exam and plan as outlined in the note above. . SABINA ROLDAN DO Sep 02, 2016 18:33 Adarsh Henderson MD Sep 04, 2016 09:27
[2016-09-03] VITALS (10 sets, daily range): BP systolic 136–169; BP diastolic 73–91; PULSE 62–120; RESP 19–22; O2SAT 95–98
[2016-09-03] MEDS: 0.9% Sodium Chloride 1,000 ML IV SCH ×3 (00:17→18:44)
[2016-09-03] MEDS: Piperacillin-Tazo 3.375 Gm Inj 3.375 GM in Dextrose 5% Minibag Plus 50 ML IV SCH (00:18)
[2016-09-03 02:52] LABS: BASOPHILS % (AUTO) 0.1 % (0-3); EOSINOPHILS % (AUTO) 0.5 % (0-5); MONOCYTES % (AUTO) 9.8 % (4-12); Mean Corpuscular Hemoglobin 29.5 pg (27.0-35.0); Mean Corpuscular Volume 89.1 fL (81-100); NEUTROPHILS % (AUTO) 78.7 % (40-74); Platelet Count 185 bil/L (150-400)
--- NOTE | 2016-09-03 04:17 | NUR ---
Cardiac/ Respirtory: PT had 11 beat run of Vtach early this AM- pt asymptomatic. AM labs noted that K was 3.2, Dr. Cleary paged with findings. Return phone call- states he will replace K via IV and will order a lab to check mag. Sp02 remains 90s on RA. Pt continues with weak, moist cough which is non productive per pt. Still needing Sputum sample.
[2016-09-03] MEDS ORDERED: KCl 40 mEq/D5W 500 mL 40 MEQ in IV Premix 1 EACH IV ONE (04:20)
--- NOTE | 2016-09-03 06:45 | NUR ---
Rhythm change: informed by MT @0638 pt converted to Afib 120s. Pt assessed Bp 169/91, pt asymptomatic. STAT EKG ordered. Dr. Cleary phone paged, awaiting return phone call. HR currently 1teen-130s Addendum: 09/03/16 at 0649 by KEERTHI FORD RN return phone call received from MD. BRIZUELA aware of tele change - states he will review
[2016-09-03] MEDS: levoFLOXacin Inj 750 MG in IV Premix 1 EACH IV SCH ×2 (09:08→09:19)
[2016-09-03] MEDS: Famotidine Inj 20 MG in IV Premix 1 EACH IV SCH ×2 (09:08→21:06)
[2016-09-03] MEDS: 0.9% Sodium Chloride 250 ML ONE ×2 (11:04→14:28)
[2016-09-03] MEDS: Ertapenem Inj 1,000 MG in 0.9% Sodium Chloride 50 ML IV SCH ×2 (14:27→14:50)
--- NOTE | 2016-09-03 14:33 | NUR ---
Ertrapenem Upon administration of medication, dispensing bottle was found to be malfunctioning and medication spilled onto floor. Notified pharmacy for replacement medication.
[2016-09-03 17:02] LABS: Magnesium 1.8 mg/dL (1.6-2.6)
--- NOTE | 2016-09-03 17:47 | PCM.PNMED ---
Subjective Date of Service Sep 03, 2016 Subjective Overnight events: Patient converted to atrial fibrillation overnight. Today, The patient continues to report nonproductive cough. Patient reports some mild diaphoresis. He denies chest pain, shortness of breath, wheezing, fevers, chills nausea, vomiting, or diarrhea. Exam Vital Signs Vital Sign - Last Date Time Temp Pulse Resp B/P Pulse Ox O2 Delivery O2 Flow Rate FiO2 09/03/16 08:59 37.4 150/81 97 Room Air 09/03/16 06:42 120 09/03/16 03:11 19 09/01/16 03:21 2.00 Intake and Output 09/02/16 09/02/16 09/03/16 Cumulative From/Thru 15:00 23:00 07:00 08/31/16 17:47 - 09/03/16 05:12 Intake Total 451 ml 1929 ml 1180 ml 9700 ml Output Total 800 ml 550 ml 2725 ml Balance 451 ml 1129 ml 630 ml 6975 ml Intake Oral 680 ml 100 ml 1332 ml IV Total 451 ml 1249 ml 1080 ml 8368 ml Output Urine Total 800 ml 550 ml 2725 ml # Voids 1 4 # Bowel Movements 2 0 2 Exam General: Alert, Oriented X3, Cooperative, No Acute Distress Head: Normocephalic, atraumatic. External ears normal. Eyes: PERRLA, EOMI. Anicteric sclerae. Mouth: Mouth Normal, Mucous Membranes Dry Neck: Neck supple with full range of motion. Chest & Lungs: Clear to auscultation bilaterally with no crackles, wheezes, or rhonchi. Cardiovascular: Regular Rate/Rhythm, Normal S1, Normal S2, No Murmurs/Rubs/ Gallops Abdomen: Non-tender, Non-distended, No masses, Normoactive bowel tones, Soft Musculoskeletal: Normal Range of Motion Extremities: No cyanosis/clubbing/edema bilaterally Neurological: Slightly slurred speech, right arm and leg weakness, generalized weakness. IVs and Medications Medications Reviewed: Medications were reviewed in detail Lab and Diagnostics Result Diagram: 09/03/1621609/03/16216 X-Rays, CTs and MRIs PROCEDURE: X-RAY CHEST ONE VIEW, PORTABLE ([id number]) INDICATIONS: FEVER, SOB TECHNIQUE: One view of the chest was acquired. COMPARISON: [facility], CR, XR CHEST 1VW (PORTABLE), 07/05/2016, 17 :06. FINDINGS: Surgical changes and devices: None. Lungs and pleura: No pleural effusions or pneumothorax. Lungs are clear. Mediastinum: Mediastinal contours appear normal. Heart size is normal. Bones and chest wall: No suspicious bony lesions. Overlying soft tissues appear unremarkable. IMPRESSION: No acute cardiopulmonary findings. Dictated by: Susie Rod M.D. on 08/31/2016 at 18:14 Approved by: Susie Rod M.D. on 08/31/2016 at 18:15 12-lead ECG Pending at the time of this dictation Assessment & Plan Mr. Alan Orozco is a 76 year old gentleman with history of Dickinson's, [place] , and hypertension who presents from [facility] for a fever of 2 days, coughing , lethargy, and weakness. Admitted for possible pneumonia. 1. Sepsis, acute, present on admission. Improving. - Meets criteria by temperature of 40.1, elevated white count of 16.9. Most likely secondary to pneumonia given his current cough which may be due to aspiration versus healthcare associated pneumonia. However UTI is also possible. Blood cultures showed Gram variable rods. Urine culture negative but UA showed >50 WBC. Lactic acid 1.1. Procalcitonin 7.12. - This is most likely secondary to Escherichia coli bacteremia. Per #2. - NS at 100 ml/hr. - Continue to monitor CBC. 2. Escherichia coli bacteremia, not present on admission. Active. - Patient had 1 out of 2 bottles positive for Escherichia coli. Ertapenem sensitive. - Dr. Morales with infectious disease following, time and recommendations appreciated. - IV Ertapenem started today. 3. Acute pneumonia, present on admission, active. - CXR was negative but CT angio of chest showed masslike consolidation at the left lung base, pneumonia vs mass. Given his fever, we will place on antibiotics to cover both aspiration and healthcare associated pneumonia given the fact he was hospitalized here in June and also lives in a custodial facility. Viral PCR was negative. Hx of aspiration and periodontal disease. - Speech consulted. Diet changed to puree. - Albuterol nebs when necessary. - Dr. Morales with infectious disease is following, time and recommendations appreciated. - IV Levaquin, Zosyn discontinued today.Vancomycin discontinued. - We will calcitonin 3.0. - MRSA screen negative. - Antibiotics per above. 4. Acute atrial fibrillation, not present on admission. Controlled. - Home metoprolol started 25 mg twice a day. - Chads score 4, high moderate risk. - Patient is currently a fall risk due to fracture and Dickinson's disease, currently being treated with only aspirin and Lovenox. Currently holding other anticoagulation due to fall risk. 5. Possible lung mass. present on admission. Active. - CXR reading as above. - Will require follow up CT with contrast outpatient 6. Hypertension, chronic, present on admission. Active. - Continue home medications. - Metoprolol 50 mg BID. - Lisinopril 20 mg Daily. 7. Latent Dickinson's Disease. 8. Left Tibial fx. - Non weight bearing - PT following. 9. Multiple Electrolyte abnormalities. Present on admission. Active. - Hypokalemia, nurse to initiate potassium magnesium replacement protocol. Acetaminophen for mild pain when necessary. Bowel regimen Senna and MiraLAX scheduled and PRN. Zofran when necessary for nausea and vomiting. SubQ heparin held for now. SCDs in place. High-risk medications: Warfarin Disposition: Likely here for > 2 midnights. Dependent upon infectious status. Will be discharged to [facility] when medically stable. Pain Evaluation: Adequate Pain Control VTE Prophylaxis: Sub-Q Enoxaparin Resuscitation Status: CPR: Attempt Resuscitation Attending Statement The patient was seen and examined together with Dr. Roldan on 09/03/2016 and I agree with the history, exam and plan as outlined in the note above. . SABINA ROLDAN DO Sep 03, 2016 10:01 Adarsh Henderson MD Sep 04, 2016 09:29
--- NOTE | 2016-09-03 17:54 | NUR ---
Cardiac/GI Pt converted back to sinus rhythm, 60-70s. Pt has had 4 large loose stools during shift. Sample for c-difficile sent to lab. Pt placed in contact enteric isolation pending test results.
[2016-09-03] MEDS ORDERED: Potassium Chloride 20 mEq/15 mL Oral Soln(K 3 - 3.7 & Creat < 2) TUBE ONE (17:55)
[2016-09-04] VITALS (8 sets, daily range): BP systolic 145–176; BP diastolic 70–101; PULSE 60–72; RESP 16–21; O2SAT 94–99
--- NOTE | 2016-09-04 00:01 | CONS ---
[address] [address] CONSULTATION REPORT PATIENT: SANFORD TUCKER : 1940 MR#: [id number] ADMIT: 08/31/2016 JOB ID: [id number] DATE OF SERVICE: 09/03/[address] Henderson for this timely consult. REASON FOR CONSULTATION: E. Coli bacteremia with associated high fevers in a Redgranite's chorea patient. HISTORY OF PRESENT ILLNESS: The patient is a 76-year-old gentleman with Redgranite's chorea which was diagnosed approximately 15 years ago. The patient also has underlying coronary artery disease, as well as hypertension, and there are notes in the chart which indicate that he may have had a preceding diagnosis of schizophrenia. In any event, the patient was in his usual state of health until June when he suffered a severe fall with left tibial plateau fracture which required surgical repair. He was subsequently sent to a assisted facility, where he has been convalescing. Prior to that time, he lived with his sister in the local area and was ambulatory and able to take care of himself despite his slowly progressive Redgranite's. The patient was sent to the emergency department from [facility] on August 31 because of high fever with cough, weakness and malaise. It was reported that a roommate at [facility] had a similar syndrome of cough with high fever, and the concern was of course that the patient had influenza. Subsequent to his being sent here he was found to have very high fevers to 40.1 degrees, as well as a dropping O2 sat. A rapid respiratory viral multiplex PCR study was positive for RSV, however, and a chest x-ray initially disclosed no infiltrates. A subsequent CT scan of the chest showed an atypical left basilar masslike small opacity consistent with pneumonia or malignancy. Subsequently, the patient's blood cultures were reported as growing a gram-negative rods and I was asked this morning by Dr. Henderson's team to comment on this odd constellation of problems, including RSV, pneumonitis or respiratory tract infection, combined with a masslike pulmonary infiltrate and E coli in the bloodstream in a Redgranite's patient. Given the fact that the E coli was fairly resistant I recommended starting ertapenem while we sorted this out, and I have now interviewed the patient and his sister, with whom he normally lives when he is not at [facility]. The patient and his sister report that he was doing quite well actually in terms of convalescing at [facility] up until just around August 29 or so when he developed a dramatically increasing cough. Whether or not the cough was productive or not is unknown as the patient thinks it may have been productive but he does not expectorate it but rather swallows the produced sputum so we do not know the quality of it. He had no particular shortness of breath with this, however, and denied any pleuritic chest pain or substernal chest pain. He denied having any abdominal pain, and specifically denied any nausea, vomiting or diarrhea. He does report that he had a bit of constipation before admission and was given a variety of laxative agents over the past 24 hours, which today have resulted in multiple bowel movements, but this would seem to be iatrogenic as none of it was present prior to admission. The patient has been wearing a diaper at [facility] because he is unable to get up due to his severely injured left tibia. He uses a urinal and reports that he has not had urgency, frequency or dysuria at all during the past few days despite me asking him several times in different ways, he has no urinary symptoms or flank pain. He has some pain in his left tibia, which is kept in a large immobilizer postop, and no significant pain in the right lower extremity. PAST MEDICAL HISTORY: 1. Redgranite's chorea. 2. Coronary artery disease. 3. Hypertension. 4. History of schizophrenia. SOCIAL HISTORY: The patient lives with his sister in the [place] area. 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 He has been in the distant past a smoker. He does not consume alcohol or use any illicit drugs. FAMILY HISTORY: Positive for Dona's. The patient's mother, grandmother and great grandmother all of disease consistent with Redgranite's chorea. This sister, with whom he lives, has been tested and she is negative for Redgranite's. REVIEW OF SYSTEMS: Was done. The patient denies tonight having had any significant headache or visual change. No sore throat or trouble swallowing. No trouble with his teeth. Both he and his sister note his speech is a little slower than it was in prior years, but not dramatically so. He is able to walk ordinarily prior to his tibial plateau fracture and apparently can get around fairly well and do chores around the house. There has been no neck stiffness. He has had the cough as noted over the past few days, which we believe has been productive, but cannot prove that. No nausea, vomiting, diarrhea. No abdominal pain. No dysuria, urgency, or frequency. He does obviously have pain in the left tibia at the site of his fracture. Remainder of the review of systems was negative. PHYSICAL EXAMINATION: Reveals an afebrile gentleman. Temperature 40.1 on admission on the , now afebrile for basically two and half days. His pulse is 62, respiratory rate 22, blood pressure 149/80. He is saturating well on room air. Mental status seems relatively clear. The patient was able to tell me where he is and what year it is, when he graduated from [employer] and other carbone facts. His speech is a bit slow perhaps, but he is lucid and clearly rational. Examination of the head discloses no trauma. Eyes notable for conjunctivitis, which his sister tells me is chronic. The oral cavity with reasonable dentition. No pharyngitis or thrush is noted. The neck is supple without adenopathy. No JVD is noted. The lungs are reasonably clear with perhaps a few crackles at the left base, but it is quite unimpressive. Cardiac tones: Regular rate and rhythm without murmur. Abdomen: Entirely soft and nontender without organomegaly. No flank tenderness. No suprapubic fullness. No John catheter. He is currently wearing a diaper. The left knee and leg is in a large immobilizer type device which I did not remove. The left foot is well perfused and without evidence of inflammation, edema or injury. The right foot is likewise normal. The right leg is entirely normal including the knee. The patient's muscle strength seems reasonably intact in the three extremities which can be tested tonight. No skin rashes noted. Remainder of the physical unremarkable. LABORATORIES: Include a white count that was 17,000 when he came in, now 11,700. He had a pronounced left shift when he came in, that is now largely gone. Creatinine 0.93, potassium 3.4, magnesium 1.8. LFTs normal. Procalcitonin was 3. Procalcitonin was as high as 7.1 right after he came in. It is now down to 3. Urinalysis greater than 50 white cells. Note that prior urines studies done in June showed no pyuria. Serologic studies include negative urine Legionella antigen, negative urine pneumococcal antigen, and respiratory viral multiplex PCR which was positive for RSV. A MRSA surveillance culture negative. Urine culture showed mixed sloan and blood cultures 2/4 bottles grew an E. coli which was fairly resistant actually, including resistance to Zosyn, Bactrim, first generation cephalosporins, and ampicillin sulbactam. It was quite susceptible, however, to quinolones, carbapenems and third generation cephalosporins. IMAGING: Includes a chest x-ray on admission on August 31 that was read as normal. Interestingly, a chest CT that was done to look for pulmonary embolism showed a masslike consolidation about 2 x 1 cm at the left base. There was also some subtle stranding in the bases of the lungs perhaps consistent with atelectasis. IMPRESSION: This is a somewhat confusing case of a 76-year-old gentleman who was in good health except for this except for slowly progressive Dona's when he fell and severely injured his left knee. Following surgery, he has been confined at [facility] for six weeks for convalescence. While there, he developed a cough which eventually led to his evaluation here and the discovery that he had RSV respiratory tract infection. This in and of itself explains his cough. The chest x-ray was read as normal, but a CT scan done to rule out PE showed a 2 x 1 cm masslike nodule at the left base which may represent some form of rounded pneumonia or atelectasis or could be a more ominous pulmonary mass, and certainly needs follow up. His blood cultures have grown E. coli. In no way do I think the patient has an E coli pneumonia and I am reasonably certain it came from his urinary tract. The only confusing part is the patient has no urgency, frequency or dysuria, and his urine did not grow E. coli though was a mixed culture. The patient has, however, had multiple urinalyses over the last few years and none of these show any white cells whatsoever and he now has greater than 50 so I think the most likely explanation is that he has an E. coli urinary tract infection which may have been related to a John catheter placement back when he had his knee surgery conceivably. There is no evidence for intra-abdominal pain, tenderness or symptomatology, and I do not think the E. coli arose either from his lungs as an E. coli pneumonia, nor from his abdomen. RECOMMENDATIONS: 1. As discussed today with the team, I would discontinue antibiotics he started the day on and instead switch to ertapenem as a solo agent. This will provide coverage for the E. coli in his blood and for any aspiration type pneumonitis, though I think that is a fading consideration here. 2. There is no specific therapy for the RSV unless one is critically ill, one might consider ribavirin and IVIG, but this patient is nowhere near that situation. 3. Will keep the patient on ertapenem for a day or so until the dust settles and then perhaps transition to oral ciprofloxacin as our definitive agent going forward. 4. Will need to make sure his QTc interval is reasonable, though Cipro is probably the least bad in terms of quinolones and QTc prolongation. 5. This case discussed in great detail with the team both this morning and this evening.
[2016-09-04] MEDS ORDERED: Potassium Chloride Oral 20 mEq SR Tab(K 3 - 3.7 & Creat < 2) PO ONE (01:40)
[2016-09-04] MEDS: 0.9% Sodium Chloride 1,000 ML IV SCH ×3 (01:42→23:01)
[2016-09-04 03:48] LABS: BASOPHILS % (AUTO) 0.1 % (0-3); EOSINOPHILS % (AUTO) 1.8 % (0-5); MONOCYTES % (AUTO) 8.8 % (4-12); Mean Corpuscular Volume 89.2 fL (81-100); NEUTROPHILS % (AUTO) 76.9 % (40-74); Platelet Count 198 bil/L (150-400)
--- NOTE | 2016-09-04 05:50 | NUR ---
Tele/GI/Cough Pt remained in SR w/ rate in 60s most of night. Pt denied pain throughout night. Pt refused Q2 turns, though able to help turn self for assessments and brief changes. MOTEL KEEPER reported one soft stool not of diarrhea consistency. Pt appeared to sleep comfortably between care interventions, though continues w/ intermittent cough which sounds productive but pt does not spit any out.
[2016-09-04] MEDS: Famotidine Inj 20 MG in IV Premix 1 EACH IV SCH (08:33)
[2016-09-04] MEDS: Ertapenem Inj 1,000 MG in 0.9% Sodium Chloride 50 ML IV SCH (08:34)
--- NOTE | 2016-09-04 09:46 | PROG NOTE ---
[address] [address] PROGRESS NOTE PATIENT: SANFORD TUCKER : 1940 MR#: [id number] ADMIT: 08/31/2016 JOB ID: [id number] DATE: 09/04/2016 INFECTIOUS DISEASE FOLLOW UP NOTE: REASON FOR FOLLOW UP: RSV respiratory tract infection plus E coli bacteremia. INTERVAL HISTORY: Overnight, the patient says he has felt quite well. He has had no additional fevers, chills or sweats. He says his cough is minimal and he is not short of breath. He had an excellent breakfast this morning. No abdominal pain. He did have some loose stools and apparently a C. difficile is pending but that is not a significant complaint this morning. No urinary symptoms. PHYSICAL EXAMINATION: Reveals an afebrile gentleman, in no acute distress. Temperature 36.6, pulse 69, respiratory rate 18, blood pressure 159/101. The patient is awake and alert, able to answer questions without difficulty. Oral cavity benign including the oral pharynx. Lungs with a few crackles at the bases bilaterally but not impressive. Good air flow and he is not short of breath. Abdomen soft and nontender. No change in cardiac rhythm. Regular rate and rhythm noted. LABORATORIES: Include a white count which has dropped to 11.2, mild left shift, 77% segs. Creatinine stable 0.93. LFTs are normal. Procalcitonin which was 7 is down to 1.5. Urinalysis had greater than 50 white cells. Urine culture turned out to be mixed sloan but the blood cultures have grown an E coli. This E coli is resistant to many agents but susceptible to both Cipro and ertapenem and note that he is currently receiving ertapenem. Recall that his chest CT showed a masslike consolidation at the left base of unknown etiology and warrants followup. RECOMMENDATIONS: 1. The patient could be switched to oral Cipro at any time. A dose of 500 b.i.d. would probably be a reasonable dose in this elderly gentleman. 2. Assuming he tolerates the Cipro reasonably well, I would certainly consider him a candidate for discharge as early as tomorrow from an ID point of view. 3. Prior to discharge, I would check another EKG to make sure his QTc interval is reasonable. 4. The total duration of the Cipro would be approximately 10 days. 5. I would leave the patient on ertapenem today just to overlap the two agents but obviously if he is doing well tomorrow morning, the ertapenem could be stopped. 6. I doubt that his masslike pulmonary infiltrate is in any way related to his E. coli bacteremia nor do I think it is particularly likely to be an aspiration pneumonia in this patient who has almost no respiratory symptoms at this point. 7. Follow up CT of the chest will be indicated to make sure that the masslike lesion has resolved or at least is not growing. If it were to grow on serial imaging, of course, one would have to consider lung biopsy if indicated.
--- NOTE | 2016-09-04 12:30 | PCM.PNMED ---
Subjective Date of Service Sep 04, 2016 Subjective Overnight events: Patient remained in sinus rhythm overnight. Today, The patient continues to report nonproductive cough. Patient reports some mild diaphoresis. He denies chest pain, shortness of breath, wheezing, fevers, chills nausea, vomiting, or diarrhea. Exam Vital Signs Vital Sign - Last Date Time Temp Pulse Resp B/P Pulse Ox O2 Delivery O2 Flow Rate FiO2 09/04/16 03:02 37.2 67 20 160/82 95 Room Air 09/01/16 03:21 2.00 Intake and Output 09/03/16 09/03/16 09/04/16 Cumulative From/Thru 15:00 23:00 07:00 08/31/16 17:47 - 09/04/16 05:36 Intake Total 1119 ml 1059 ml 83788 ml Output Total 879 ml 600 ml 4204 ml Balance 240 ml 459 ml 7674 ml Intake Oral 300 ml 200 ml 1832 ml IV Total 819 ml 859 ml 87636 ml Output Urine Total 875 ml 600 ml 4200 ml Estimated Blood Loss 4 ml 4 ml # Voids 1 5 # Bowel Movements 2 1 5 Exam General: Alert, Oriented X3, Cooperative, No Acute Distress Head: Normocephalic, atraumatic. External ears normal. Eyes: PERRLA, EOMI. Anicteric sclerae. Mouth: Mouth Normal, Mucous Membranes Dry Neck: Neck supple with full range of motion. Chest & Lungs: Clear to auscultation bilaterally with no crackles, wheezes, or rhonchi. Cardiovascular: Regular Rate/Rhythm, Normal S1, Normal S2, No Murmurs/Rubs/ Gallops Abdomen: Non-tender, Non-distended, No masses, Normoactive bowel tones, Soft Musculoskeletal: Normal Range of Motion Extremities: No cyanosis/clubbing/edema bilaterally Neurological: Slightly slurred speech, right arm and leg weakness, generalized weakness. IVs and Medications Medications Reviewed: Medications were reviewed in detail Lab and Diagnostics Result Diagram: 09/04/1630409/04/16304 X-Rays, CTs and MRIs PROCEDURE: X-RAY CHEST ONE VIEW, PORTABLE ([id number]) INDICATIONS: FEVER, SOB TECHNIQUE: One view of the chest was acquired. COMPARISON: [facility], CR, XR CHEST 1VW (PORTABLE), 07/05/2016, 17 :06. FINDINGS: Surgical changes and devices: None. Lungs and pleura: No pleural effusions or pneumothorax. Lungs are clear. Mediastinum: Mediastinal contours appear normal. Heart size is normal. Bones and chest wall: No suspicious bony lesions. Overlying soft tissues appear unremarkable. IMPRESSION: No acute cardiopulmonary findings. Dictated by: Susie Rod M.D. on 08/31/2016 at 18:14 Approved by: Susie Rod M.D. on 08/31/2016 at 18:15 12-lead ECG Pending at the time of this dictation Assessment & Plan Mr. Alan Orozco is a 76 year old gentleman with history of Dona's, [place] , and hypertension who presents from [facility] for a fever of 2 days, coughing , lethargy, and weakness. Admitted for possible pneumonia. 1. Escherichia coli bacteremia (septicemia), not present on admission. Active. - Patient had 1 out of 2 bottles positive for Escherichia coli. Ertapenem sensitive. - Dr. Morales with infectious disease following, time and recommendations appreciated. - IV Ertapenem. Will start Ciprofloxacin today and overlap the two. 2. Urinary tract infection, present on admission. Active. - Pyuria present with large amount of WBC in urine. - PROBABLE pyelonephritis. Abx per above. 3. Acute pneumonia, present on admission, Improved. - CXR was negative but CT angio of chest showed masslike consolidation at the left lung base, pneumonia vs mass. Given his fever, we will place on antibiotics to cover both aspiration and healthcare associated pneumonia given the fact he was hospitalized here in June and also lives in a penitentiary facility. Viral PCR was negative. Hx of aspiration and periodontal disease. - Speech consulted. Diet changed to puree. - Albuterol nebs when necessary. - Dr. Morales with infectious disease is following, time and recommendations appreciated. - MRSA screen negative. - Procalcitonin 3.0 4. Sepsis, acute, present on admission. resolved. - Meets criteria by temperature of 40.1, elevated white count of 16.9. Most likely secondary to pneumonia given his current cough which may be due to aspiration versus healthcare associated pneumonia. However UTI is also possible. Blood cultures showed Gram variable rods. Urine culture negative but UA showed >50 WBC. Lactic acid 1.1. Procalcitonin 7.12. - This is most likely secondary to Escherichia coli bacteremia. Per #2. - NS at 100 ml/hr. - Continue to monitor CBC. 5. Acute atrial fibrillation, not present on admission. Rate Controlled. - Home metoprolol increased from 25 mg twice a day to 50 mg BID. - Chads score 4, high moderate risk. 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 Currently holding other anticoagulation due to fall risk. 6. Possible lung mass. present on admission. Active. - CXR reading as above. - Will require follow up CT with contrast outpatient 7. Hypertension, chronic, present on admission. Active. - Continue home medications. - Metoprolol 50 mg BID. - Lisinopril 20 mg Daily. 8. Latent Goodridge's Disease with chronic dysphagia. - Aspiration risk. - Fall risk. 9. Left Tibial fx. - Non weight bearing - PT following. 10. Multiple Electrolyte abnormalities. Present on admission. Active. - Hypokalemia, nurse to initiate potassium magnesium replacement protocol. Acetaminophen for mild pain when necessary. Bowel regimen Senna and MiraLAX scheduled and PRN. Zofran when necessary for nausea and vomiting. SubQ heparin held for now. SCDs in place. High-risk medications: Warfarin Disposition: Likely here for > 2 midnights. Dependent upon infectious status. Will be discharged to [facility] when medically stable. Possibly tomorrow. Pain Evaluation: Adequate Pain Control VTE Prophylaxis: Sub-Q Enoxaparin Resuscitation Status: CPR: Attempt Resuscitation Time spent 35 minutes Attending Statement Patient was seen and examined with house staff. Agree with all attached documentation. SABINA ROLDAN DO Sep 04, 2016 06:56 Raghu Jensen MD Sep 05, 2016 14:56
[2016-09-04] MEDS ORDERED: Potassium Chloride 20 mEq SR Tablet PO ONE (16:05)
--- NOTE | 2016-09-04 16:29 | NUR ---
Potassium Patient on K=/Mag protocol. K+ was 3.6 this AM, patient received 40mg PO replacement. Will redraw K+ levels per protocol.
[2016-09-04 22:18] LABS: BASOPHILS % (AUTO) 0.1 % (0-3); EOSINOPHILS % (AUTO) 1.9 % (0-5); MONOCYTES % (AUTO) 9.9 % (4-12); Mean Corpuscular Hemoglobin 29.3 pg (27.0-35.0); Mean Corpuscular Volume 88.2 fL (81-100); NEUTROPHILS % (AUTO) 75.8 % (40-74); Platelet Count 194 bil/L (150-400)
[2016-09-04 22:37] LABS: INR 1.05 ratio
--- NOTE | 2016-09-04 22:38 | ABG ---
DateTimeAnalyzed 22:33:00 -_ pH ____7.449 - 7.350 7.450 pCO2 ___33.9__ -mmHg 35.0 45.0 pO2 101 -mmHg 69.0 116 HCO3- ___23.2__ -mmol/L 22.0 26.0 ABE ____0.1__ -mmol/L -2.0 2.0 tHb ___11.3__ -g/dL O2Hb ___96.4__ -% COHb ____1.3__ -% MetHb ____0.8__ -% sO2 ___98.5__ -% 25.0 FIO2 ___32.0__ -% Drawn By AF - Date/Time Notified____ 22:38:00 -_ Notified By AF - Notified Whom ____Nurse - B 741 -mmHg tO2 ___15.4__ -Vol% Raghu test _Positive -
[2016-09-04 22:45] LABS: D-DIMER 5.7 mg/L (<0.50)
--- NOTE | 2016-09-04 23:42 | NUR ---
Neuro Changes/Transfer of care Around 2129, this nurse in room to give meds and found pt very somnolent, not following commands, and hardly able to open eyes. Pt barely grunting to some questions and sometimes not at all. Just one hour before pt was getting brief changed and able to follow commands and alert. Vitals stable and consistent w/ pt baseline, blood sugar 89. finish mixer called to room and assessed as well, noted pinpoint pupils, no meds given per [facility] record to explain changes in neuro status. Resident MD paged and also in room to assess, ordered stat head CT and ABGs. CCU RN Abelardo Ortiz in room as well and assumed care, report given at bedside. This nurse and CCU nurse took pt to CT and back w/out complications. After CT pt appeared to wake and opened eyes, following some commands, though still somnolent.
[2016-09-05] MEDS ORDERED: Potassium Chloride 20 mEq SR Tablet PO ONE (00:20)
[2016-09-05 04:03] LABS: BASOPHILS % (AUTO) 0.1 % (0-3); EOSINOPHILS % (AUTO) 2.2 % (0-5); Mean Corpuscular Hemoglobin 29.1 pg (27.0-35.0); Mean Corpuscular Volume 88.9 fL (81-100); NEUTROPHILS % (AUTO) 72.7 % (40-74); Platelet Count 205 bil/L (150-400)
[2016-09-05 04:10] VITALS: BP 149/69; PULSE 65; RESP 24; O2SAT 99
[2016-09-05 04:22] LABS: Magnesium 1.7 mg/dL (1.6-2.6)
--- NOTE | 2016-09-05 05:13 | NUR ---
Transfer/Neuro/cardiac 2214 - Patient not arousable to sternal rub and would not follow commands, MD notified and patient taken to CT scan, labs drawn stat, patient transferred to CCU 2011, CT results unremarkable and MD notified. 0500 - Patient sleepy this shift but awakens to touch and voice, patient stated he sleeps really hard at times, alert and oriented and pleasant, uneventful shift since transfer to CCU, ital signs stable, HR SB/SR with PAC and PVCs, no distress noted, will continue to monitor, K 3.7 this AM, replacement per protocol. Addendum: 09/05/16 at 0519 by NOE GOLDMAN RN Amended: Links added.
[2016-09-05] MEDS ORDERED: Potassium Chloride Oral 20 mEq SR Tab(K 3 - 3.7 & Creat < 2) PO ONE (05:30)
[2016-09-05 08:00] VITALS: BP 154/74; PULSE 65; RESP 17; O2SAT 99
--- NOTE | 2016-09-05 08:19 | DRSVH ---
PROCEDURE: CT BRAIN WITHOUT CONTRAST ([id number]) INDICATIONS: STROKE??? TECHNIQUE: Noncontrast 4.5 mm thick angled axial sections acquired from the foramen magnum to the vertex, with c oronal reformats. COMPARISON: [facility], CT, CT BRAIN WO CON, 07/05/2016, 14:44. FINDINGS: Image quality: Excellent. CSF spaces: Basal cisterns are patent. No extra-axial fluid collections. The ventricles are symmet cassie in size and shape. Brain: No intracranial bleeds or masses. There is moderate cerebral volume loss for age, with resul tant ventricular and sulcal prominence. There are mild periventricular and deep white matter chronic small vessel ischemic changes. There is intracranial internal carotid artery atherosclerosis. Skull and face: Calvarium and visualized facial bones appear intact, without suspicious lesions. Sinuses: There is an air-fluid level in the right maxillary sinus. Mastoids are clear. IMPRESSION: 1. No acute intracranial abnormalities. 2. Cerebral volume loss and chronic microvascular ischemic changes. 3. An air-fluid level in the right maxillary sinus, suspicious for sinusitis. No significant discrepancy with the night shift supervisor radiology preliminary report. Dictated by: Silvia Strange M.D. on 09/05/2016 at 8:16 Approved by: Silvia Strange M.D. on 09/05/2016 at 8:17
--- NOTE | 2016-09-05 09:23 | PROG NOTE ---
[address] [address] PROGRESS NOTE PATIENT: SANFORD TUCKER : 1940 MR#: [id number] ADMIT: 08/31/2016 JOB ID: [id number] DATE: 09/05/2016 INFECTIOUS DISEASE FOLLOW UP NOTE: REASON FOR FOLLOW UP: E. coli bacteremia, probable urinary tract source plus respiratory syncytial virus pulmonary infection plus change in mental status. INTERVAL HISTORY: Overnight, the patient was abruptly moved to the ICU after he had a period of complete unresponsiveness. I understand from the nurses that sternal rubs and screaming at the patient produced no response whatsoever for assisting. This led to an emergent CT scan of the brain and transfer to the CCU. Subsequently, the patient woke up and this morning he tells me he feels fine. He says he still has a minimal cough with no shortness of breath. No chest pain. No nausea, vomiting or diarrhea. His diarrhea yesterday has resolved and his C. difficile turned out to be negative. The patient is looking for breakfast this morning and says he feels back to normal. I discussed his case with the sister with whom he lives. She says this never happens at home despite his underlying history of Midland disease and she has no explanation for what left him unarousable for a sustained period yesterday. PHYSICAL EXAMINATION: Reveals a gentleman who is awake and alert and back to his mental status the same as it has been the last several days. He was afebrile throughout this whole episode and his temperature is currently 36.9. His pulse is 65. Blood pressure 149/69. He is saturating well on 2 L, but he was saturating well on room air prior to these events. He is awake, alert as noted. Oral cavity without thrush. Lungs quite clear bilaterally. Cardiac tones: Regular rate and rhythm and the monitor shows sinus rhythm at 70. His abdomen is soft and nontender. He has no new skin rashes. Left knee is in a big immobilizer as it was before due to his recent tibial plateau fracture. LABORATORIES: Include a white count of 11,000 this morning with normal differential which is really unchanged from prior. His creatinine is 0.95. His electrolytes are physiologic. His LFTs are normal. His most recent procalcitonin was yesterday was down to 1.5, so much decreased from admission. Micro was reviewed. He is positive for RSV, negative for C. difficile. Of course, he had the positive blood cultures for E coli which we believe but cannot prove came from his urine. IMAGING: Includes a CT of the brain done last night that shows right maxillary air-fluid level consistent with sinusitis, otherwise no acute changes noted. IMPRESSION: Yesterday's "spell" with sudden unresponsive state remains completely unexplained and the patient has returned to normal. This may be in some way related perhaps to his Midland disease or perhaps medications that he has been receiving but it is really quite strange. The patient now has returned all the way back to normal. I think we can continue with our prior plans. Recall that the patient does have underlying RSV pneumonitis as well as an unusual pulmonary masslike structure which will require followup in a few weeks or months. 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 coli bacteremia which is secondary probably to urinary tract infection. RECOMMENDATIONS: 1. The patient can be maintained on oral Cipro at this time and treat him for 10 days. 2. We should repeat an EKG and double check is QTc interval. 3. The ertapenem can be discontinued today. 4. A follow up CT scan of the chest will be indicated to follow up on the nodular mass that was seen previously. Thank you very much. Note that this case was discussed at the bedside with the ICU team.
[2016-09-05] MEDS: 0.9% Sodium Chloride 1,000 ML IV SCH ×2 (09:28→20:44)
--- NOTE | 2016-09-05 10:58 | NUR ---
NUTRITION FOLLOW UP Assess: Pt is a 76 yo male admitted w/ pneumonia and sepsis. Pt is positive for E. coli. Pt is on a soft diet w/ HTL at [facility], his current place of residence. Upon evaluation on 09/01, ST recommended dysphagia mechanical diet w/ HTL. Per family and pt, pt had a difficult time w/ texture of dysphagia mechanical diet at dinner. ST downgraded diet to puree w/ HTL d/t aspiration concerns. Pt had episode of unresponsiveness last night, which seems to be resolved now. Per notes this morning, pt states being interested in breakfast w/ fair PO intake. Pt on oxymask as needed. PMHx: PR, Huntingtons chorea, Paranoid schizophrenia, OCD, HTN, Prostate CA removal, Appendectomy, recent left tib/fib fracture requiring surgical repair LABS: Ca 8.1, Alb 2.4 MEDICATIONS: Lipitor DIET: Puree w/ HTL. Cottage cheese approved. PO 25-80% GI symptoms/stool: 2 BM (09/05) SKIN: Semaj 16 - no other skin issues noted. ANTHROPOMETRICS: Current Wt: 90.3 kg BMI: 27.8 kg/m2 IBW: 75.3 kg Admit Wt: 85.7 kg (BMI: 26.4 kg/m2) ESTIMATED NEEDS: Calories: 5910-3638 kcal/day (25-30 kcal/kg Admit BW) Protein: 70-90 g/day (0.8-1.0 g/kg Admit BW) NUTRITION DIAGNOSIS: 1) Chew/swallow difficulties related to chronic dysphagia as evidenced by ST recommendation for altered texture diet and family and pt request for pureed diet.---PERSISTS INTERVENTION: 1) Continue adding Gelatein Plus to pt trays TID. MONITOR/EVALUATE: Diet tolerance, PO intake, GI, medications, nutrition status, POC. Will continue to monitor per moderate nutritional risk guidelines. Addendum: 09/05/16 at 1504 by [address] D [address] Student documentation reviewed and I agree with the above assessment Arlen Saleh, MS, RDN, CD
[2016-09-05 12:00] VITALS: BP 122/74; PULSE 106; RESP 26; O2SAT 94
--- NOTE | 2016-09-05 13:05 | NUR ---
Mentation.. Has been awake and alert with baseline neuros. Is currently up in chair visiting with family and eating. No cough or aspiration noted. Has been on Room Air since 0800 and Spo2 remains stable. Has been changed to [facility] status.
[2016-09-05 14:55] VITALS: BP 137/80; PULSE 72; RESP 19; O2SAT 97
--- NOTE | 2016-09-05 15:50 | PCM.PNMED ---
Subjective Date of Service Sep 05, 2016 Subjective This is a 76-year-old male who has a history of Dona's chorea, [place] hypertension who presented to the emergency room from [facility]. He had a fever today also over the past 2 days has been having cough with increasing lethargy and weakness. Patient denies any chest pain. Denies any head congestion or postnasal drainage. notes that he has a roommate at the senior living who recently has been having similar symptoms with a cough. Patient to get a flu shot this year. His evaluation in the emergency room includes a white count of 16.9 with 91% polys chest x-ray at this point did not show any acute abnormalities. His fever was up to 40.1 O2 sat was 92% on 1.5 L nasal cannula with a respiratory rate of 21 and a blood pressure 135/64. Author - Gloria Orellana MD Aug 31, 2016 21:09 Overnight events: Patient was unresponsive overnight per nursing, resident notified. Patient underwent CT brain, ABG and transferred to the CCU. Shortly thereafter patient awoke normally and had to use the rest room. CT brain and ABG normal. Today, He reports feeling fine today. Physical therapy reports adequate progression. He denies chest pain, shortness of breath, wheezing, fevers, chills nausea, vomiting, or diarrhea. Exam Vital Signs Vital Sign - Last Date Time Temp Pulse Resp B/P Pulse Ox O2 Delivery O2 Flow Rate FiO2 09/05/16 14:55 37.4 72 19 137/80 97 Room Air 09/05/16 04:10 2.00 Intake and Output 09/04/16 09/04/16 09/05/16 Cumulative From/Thru 14:59 22:59 06:59 08/31/16 17:47 - 09/05/16 05:12 Intake Total 1550 ml 632 ml 93397 ml Output Total 650 ml 400 ml 5254 ml Balance 900 ml 232 ml 8806 ml Intake Oral 350 ml 0 ml 2182 ml IV Total 1200 ml 632 ml 51287 ml Output Urine Total 650 ml 400 ml 5250 ml Estimated Blood Loss 4 ml # Voids 1 3 9 # Bowel Movements 2 2 9 Exam General: Alert, Oriented X3, Cooperative, No Acute Distress Head: Normocephalic, atraumatic. External ears normal. Eyes: PERRLA, EOMI. Anicteric sclerae. Mouth: Mouth Normal, Mucous Membranes Dry Neck: Neck supple with full range of motion. Chest & Lungs: Clear to auscultation bilaterally with no crackles, wheezes, or rhonchi. Cardiovascular: Regular Rate/Rhythm, Normal S1, Normal S2, No Murmurs/Rubs/ Gallops Abdomen: Non-tender, Non-distended, No masses, Normoactive bowel tones, Soft Musculoskeletal: Normal Range of Motion Extremities: No cyanosis/clubbing/edema bilaterally Neurological: Slightly slurred speech, right arm and leg weakness, generalized weakness. IVs and Medications Medications Reviewed: Medications were reviewed in detail Lab and Diagnostics Result Diagram: 09/05/16 0335 09/05/16 1005 X-Rays, CTs and MRIs PROCEDURE: X-RAY CHEST ONE VIEW, PORTABLE ([id number]) INDICATIONS: FEVER, SOB TECHNIQUE: One view of the chest was acquired. COMPARISON: [facility], CR, XR CHEST 1VW (PORTABLE), 07/05/2016, 17 :06. FINDINGS: Surgical changes and devices: None. Lungs and pleura: No pleural effusions or pneumothorax. Lungs are clear. Mediastinum: Mediastinal contours appear normal. Heart size is normal. Bones and chest wall: No suspicious bony lesions. Overlying soft tissues appear unremarkable. IMPRESSION: No acute cardiopulmonary findings. Dictated by: Susie Rod M.D. on 08/31/2016 at 18:14 Approved by: Susie Rod M.D. on 08/31/2016 at 18:15 12-lead ECG Pending at the time of this dictation Assessment & Plan Mr. Alan Orozco is a 76 year old gentleman with history of Dona's, [place] , and hypertension who presents from [facility] for a fever of 2 days, coughing , lethargy, and weakness. Admitted for possible pneumonia. 1. Escherichia coli bacteremia (septicemia), not present on admission. Active. - Patient had 1 out of 2 bottles positive for Escherichia coli. Ertapenem sensitive. - Dr. Morales with infectious disease following, time and recommendations appreciated. - IV Ertapenem d/c'd today. Will start Ciprofloxacin today for a total of 10 days. - EKG ordered for Qt check. 2. Urinary tract infection, present on admission. Active. - Pyuria present with large amount of WBC in urine. - PROBABLE pyelonephritis. Abx per above. 3. Acute pneumonia, present on admission, Improved. - CXR was negative but CT angio of chest showed masslike consolidation at the left lung base, pneumonia vs mass. Given his fever, we will place on antibiotics to cover both aspiration and healthcare associated pneumonia given the fact he was hospitalized here in June and also lives in a detention facility. Viral PCR was negative. Hx of aspiration and periodontal disease. Patient will need follow up CT chest in the near future, most likely as an outpatient. - Speech consulted. Diet changed to puree. - Albuterol nebs when necessary. - Dr. Morales with infectious disease is following, time and recommendations appreciated. - MRSA screen negative. - Procalcitonin 3.0 - CXR per above. 4. Sepsis, acute, present on admission. resolved. - Meets criteria by temperature of 40.1, elevated white count of 16.9. Most likely secondary to pneumonia given his current cough which may be due to aspiration versus healthcare associated pneumonia. However UTI is also possible. Blood cultures showed Gram variable rods. Urine culture negative but UA showed >50 WBC. Lactic acid 1.1. Procalcitonin 7.12. - This is most likely secondary to Escherichia coli bacteremia. Per #2. - NS at 100 ml/hr. - Continue to monitor CBC. 5. Acute atrial fibrillation, not present on admission. Rate Controlled. - Home metoprolol increased from 25 mg twice a day to 50 mg BID. - Chads score 4, high moderate risk. - Patient is currently a fall risk due to fracture and Wayland's disease, currently being treated with only aspirin and Lovenox. Currently holding other anticoagulation due to fall risk. 6. Possible lung mass. present on admission. Active. - CXR reading as above. - Will require follow up CT with contrast outpatient 7. Hypertension, chronic, present on admission. Active. - Continue home medications. - Metoprolol 50 mg BID. - Lisinopril 20 mg Daily. 8. Latent Dona's Disease with chronic dysphagia. - Aspiration risk. - Fall risk. 9. Left Tibial fx. - Non weight bearing - PT following. 10. Multiple Electrolyte abnormalities. Present on admission. Active. - Hypokalemia, nurse to initiate potassium magnesium replacement protocol. Acetaminophen for mild pain when necessary. Bowel regimen Senna and MiraLAX scheduled and PRN. Zofran when necessary for nausea and vomiting. SubQ heparin held for now. SCDs in place. High-risk medications: Disposition: Likely here for > 2 midnights. Dependent upon infectious status. Will be discharged to [facility] when medically stable. Possibly tomorrow. Pain Evaluation: Adequate Pain Control VTE Prophylaxis: Sub-Q Enoxaparin VTE Mechanical Devices: Intermittant Pneumatic CD Resuscitation Status: CPR: Attempt Resuscitation Time spent 30 min Attending Statement Patient seen and examined with house staff. Agree with all attached documentation. SABINA ROLDAN DO Sep 05, 2016 15:42 Raghu Jensen MD Sep 06, 2016 18:14
[2016-09-05 20:34] VITALS: BP 146/73; PULSE 71; RESP 20; O2SAT 94
--- NOTE | 2016-09-05 22:38 | NUR ---
Mobility/ Dressing changed Pt not able to assist with turning with 1PA, 2PA needed. Pt able to follow commands and verbalize understanding. Pt's dressings to left hip changed. Previous dressings had no date, day shift informed nurse that dressings needed to be changed. New dressings dated. Addendum: 09/05/16 at 2240 by BECK ROME RN NOTE: Disregard note on dressing change. Wrong pt.
[2016-09-06 00:49] VITALS: BP 157/80; PULSE 60; RESP 22; O2SAT 97
[2016-09-06 04:00] LABS: BASOPHILS % (AUTO) 0.1 % (0-3); EOSINOPHILS % (AUTO) 2.2 % (0-5); MONOCYTES % (AUTO) 10.5 % (4-12); Mean Corpuscular Hemoglobin 29.4 pg (27.0-35.0); NEUTROPHILS % (AUTO) 72.7 % (40-74); Platelet Count 213 bil/L (150-400)
[2016-09-06] MEDS: 0.9% Sodium Chloride 1,000 ML IV SCH ×2 (06:44→16:44)
[2016-09-06 08:50] VITALS: BP 157/79; PULSE 59; RESP 16; O2SAT 97
[2016-09-06 11:45] VITALS: BP 158/77; PULSE 62; RESP 18; O2SAT 98
--- NOTE | 2016-09-06 12:31 | NUR ---
Social Work: Readiness for Discharge D: Pt discussed in am rounds. MD believes pt may be ready for discharge back to [facility] today. PROJECT ESTIMATOR spoke with Ekaterina at [facility] who states that she still has some concerns about pt's discharge back including an increased WBC after being d/c'd from IV ABX yesterday, and pt being Afibrial. She would also like clarification if the pt will still need isolation precautions. PROJECT ESTIMATOR spoke with Resident of [facility]'s concerns. He states he will discuss with attending MD and ID. MD states pt will need isolation at time of d/c. Per [facility], they may not be able to accommodate pt today. MD is aware. A: Pt who continues to require skilled PT for functional mobility; pt currently not ambulating due to knee precautions. P: Anticipate pt to discharge to [facility] with Dr. Givens to follow pending clinical course and bed availability. PROJECT ESTIMATOR to follow up with Resident about pt's anticipated discharge and discussion with attending and ID. DARLENE Leary Addendum: 09/06/16 at 1536 by DANIEL CABAN MD states that the pt is ready for discharge. [facility] is not able to accept the pt at this time due to him needing a private room. PROJECT ESTIMATOR spoke with the pt's about discharge and issue with [facility]. She is agreeable to referrals being sent to [facility] and [facility]. She does not want the pt to go to [facility]. PPW on chart. PASSR will need to be completed as pt is going to a new facility. PROJECT ESTIMATOR paged to notify that pt does not have a discharge location at this time and to sign PASSR. [facility] has provided referrals to [facility] and [facility] PROJECT ESTIMATOR to continue to follow and update. Addendum: 09/06/16 at 1759 by DANIEL CABAN [facility] and [facility] cannot accept pt. [facility] has accepted the pt with Dr. Toledo to follow. PROJECT ESTIMATOR faxed completed PASSR to [facility]. They can accept him tomorrow. and glove operator updated. PROJECT ESTIMATOR met with pt and sister at bedside. They are not happy that this is their only option but are appreciative that the facility is willing to take the pt. They are optimistic. Pt will transport via [facility].
--- NOTE | 2016-09-06 13:21 | NUR ---
Transfer to 2027 Pt transferred to room 2027, this RN will continue care. Patient resting and visiting with sister at bedside.
--- NOTE | 2016-09-06 15:29 | PROG NOTE ---
[address] [address] PROGRESS NOTE PATIENT: SANFORD TUCKER : 1940 MR#: [id number] ADMIT: 08/31/2016 JOB ID: [id number] DATE: 09/06/2016 INFECTIOUS DISEASE FOLLOWUP NOTE: REASON FOR FOLLOWUP: RSV pneumonitis, and E. coli bacteremia. INTERVAL HISTORY: The patient reports that he is feeling fine today. He tells me he has had no fevers, chills, or sweats. He denies any cough or respiratory complaint. No abdominal pain or dysuria is noted. No skin rash. LABORATORIES: Include a white count stable at 12,500. Creatinine 0.98. LFT are normal. Albumin 2.6. Urinalysis on admission had greater than 50 white cells. The urine grew mixed organisms. The blood cultures grew E. coli, which was Cipro sensitive. He also had a respiratory panel positive for RSV. PHYSICAL EXAMINATION: Reveals an afebrile gentleman, in no acute distress. Temp 36.6, pulse 62, respiratory rate 18, blood pressure 158/77. He is saturating well on room air. Examination of the mental status reveals no changes. He is alert and oriented. Oral cavity without thrush or pharyngitis. Lungs: Clear anteriorly. Cardiac tones without new murmur. Abdomen soft and nontender. No flank tenderness. No skin rash. IMPRESSION: This patient has done extremely well with respect to his Escherichia coli bacteremia, which I believe came from a urinary tract source, as well as his reversed saphenous vein pneumonitis. At this point, I think he could be discharged at any point back to the [facility] facility, where he has convalescing from his left tibial plateau injury. RECOMMENDATIONS: 1. The patient could be treated with Cipro for the next 10 days. 2. I would double check that his QTc interval is less than 0.5 and if that is true, I think he can be discharged at any time. 3. He will need a followup CT scan of his chest in the next several weeks to evaluate the nodular mass that was seen previously. 4. This case has been discussed with a account retention representative of the Medicine team taking care of the patient. 5. Infectious Disease will go ahead and sign off at this time. Thank you for involving me in the care of this fascinating gentleman.
--- NOTE | 2016-09-06 15:47 | PCM.DIMED ---
SABINA ROLDAN DO 09/06/16 1547: Discharge Instructions Date of Service Sep 06, 2016 Dates of Hospitalization Aug 31, 2016 at 20:27 Discharge Diagnosis Discharge Diagnosis 1. Escherichia coli bacteremia (septicemia), not present on admission. Improved and treated. 2. Urinary tract infection, present on admission. improved and treated. 3. Acute pneumonia, present on admission, Improved. 4. Sepsis, acute, present on admission. resolved. - 5. Acute atrial fibrillation, not present on admission. Rate Controlled. 6. Possible lung mass. present on admission. Active. 7. Hypertension, chronic, present on admission. Active. 8. Latent Tichnor's Disease with chronic dysphagia. 9. Left Tibial fx. 10. Multiple Electrolyte abnormalities. Present on admission. Resolved. - Medication Instructions New medications: Start Ciprofloxacin 500 mg by mouth twice per day for 10 days total as an outpatient. (last 2 doses on 09/16/16) #20 pills. Test Results Will need follow up on CT findings of mass like lesion in the lungs. Activity Other (puree diet for dysphagia. ) Call your provider Fever or Chills, Shortness of breath, Chest pain, Excessive diarrhea, Weakness ( unilateral) Patient Instructions Follow-up Provider: Michael Spencer MD Follow-up with PCP in: 2 weeks (2-3 weeks. ) Raghu Jensen MD 09/07/16 1500: Discharge Instructions Attending's Statement Patient seen and examined with house staff. Agree with all attached documentation. SABINA ROLDAN DO Sep 06, 2016 15:47 Raghu Jensen MD Sep 07, 2016 15:00
[2016-09-06] MEDS ORDERED: CIPR-231 PO ×2 (15:49→15:53)
[2016-09-06 16:00] VITALS: BP 110/63; PULSE 70; RESP 18; O2SAT 95
--- NOTE | 2016-09-06 16:05 | PCM.DC.MED ---
Discharge Summary Date of Service Sep 06, 2016 Dates of Hospitalization Date of Hospital Admission Aug 31, 2016 at 20:27 Date of Discharge: Sep 06, 2016 Providers: Admitting Physician: Gloria Orellana MD Primary Care Physician: Michael Spencer MD Attending Physician: Gloria Orellana MD Diagnosis at Time of Discharge Diagnosis at Time of Discharge 1. Escherichia coli bacteremia (septicemia), not present on admission. Improved and treated. 2. Urinary tract infection, present on admission. improved and treated. 3. Acute pneumonia, present on admission, Improved. 4. Sepsis, acute, present on admission. resolved. - 5. Acute atrial fibrillation, not present on admission. Rate Controlled. 6. Possible lung mass. present on admission. Active. 7. Hypertension, chronic, present on admission. Active. 8. Latent Dona's Disease with chronic dysphagia. 9. Left Tibial fx. 10. Multiple Electrolyte abnormalities. Present on admission. Resolved. - Consultations ID, Dr Morales Procedures XRay, CTs & MRIs PROCEDURE: X-RAY CHEST ONE VIEW, PORTABLE ([id number]) INDICATIONS: FEVER, SOB TECHNIQUE: One view of the chest was acquired. COMPARISON: [facility], CR, XR CHEST 1VW (PORTABLE), 07/05/2016, 17 :06. FINDINGS: Surgical changes and devices: None. Lungs and pleura: No pleural effusions or pneumothorax. Lungs are clear. Mediastinum: Mediastinal contours appear normal. Heart size is normal. Bones and chest wall: No suspicious bony lesions. Overlying soft tissues appear unremarkable. IMPRESSION: No acute cardiopulmonary findings. Dictated by: Susie Rod M.D. on 08/31/2016 at 18:14 Approved by: Susie Rod M.D. on 08/31/2016 at 18:15 ECG 12 Lead Sinus rhythm, Qtc ~470 Brief History This is a 76-year-old male who has a history of [place]'s chorea, [place] hypertension who presented to the emergency room from [facility]. He had a fever today also over the past 2 days has been having cough with increasing lethargy and weakness. Patient denies any chest pain. Denies any head congestion or postnasal drainage. notes that he has a roommate at the senior care who recently has been having similar symptoms with a cough. Patient to get a flu shot this year. His evaluation in the emergency room includes a white count of 16.9 with 91% polys chest x-ray at this point did not show any acute abnormalities. His fever was up to 40.1 O2 sat was 92% on 1.5 L nasal cannula with a respiratory rate of 21 and a blood pressure 135/64. Patient was diagnosed with respiratory syncytial virus, as well as Escherichia coli bacteremia with likely source of urinary tract infection. He also had an incidental finding on CT of the chest with a masslike lesion in the left lower lobe. He was started on broad-spectrum antibiotics of ceftriaxone and levofloxacin, and switched to ertapenem for 3 days. He was started on ciprofloxacin by Dr. Morales of infectious disease. Patient's white count has normalized as well as his pro-calcitonin. His vital signs are stable aside from a slightly elevated blood pressure of 158/77, currently being treated with home medications. Current labs are stable and he has been cleared for discharge to long term facility to regain history. He will remain on ciprofloxacin for 10 days 500 mg twice a day by mouth. Hospital Course Mr. Alan Orozco is a 76 year old gentleman with history of [place]'s, [place] , and hypertension who presents from [facility] for a fever of 2 days, coughing , lethargy, and weakness. Admitted for possible pneumonia. 1. Escherichia coli bacteremia (septicemia), not present on admission. Improved and treated. - Patient had 1 out of 2 bottles positive for Escherichia coli. Ertapenem by IV for 3 days. - Dr. Morales with infectious disease following, time and recommendations appreciated. - Ciprofloxacin for 3 days +10 days as an outpatient. - EKG showed normal sinus rhythm and a normal QTc interval. 2. Urinary tract infection, present on admission. Improved and treated. - Abx per above. 3. Acute pneumonia, present on admission, Improved. - CXR was negative but CT angio of chest showed masslike consolidation at the left lung base, pneumonia vs mass. Given his fever, we will place on antibiotics to cover both aspiration and healthcare associated pneumonia given the fact he was hospitalized here in June and also lives in a long term facility. Hx of aspiration and periodontal disease. - Speech consulted. Diet changed to puree. - Dr. Morales with infectious disease is following, time and recommendations appreciated. - MRSA screen negative. - Procalcitonin and white count is now normalized. - CXR per above. - Patient will need follow up CT chest in the near future, most likely as an outpatient. 4. Sepsis, acute, present on admission. resolved. - Meets criteria by temperature of 40.1, elevated white count of 16.9. Most likely secondary to pneumonia given his current cough which may be due to aspiration versus healthcare associated pneumonia. However UTI is also possible. Blood cultures showed Gram variable rods. Urine culture negative but UA showed >50 WBC. Lactic acid 1.1. Procalcitonin 7.12. - This is most likely secondary to Escherichia coli bacteremia. Per #2.. 5. Acute atrial fibrillation, not present on admission. Rate Controlled. - Home metoprolol increased from 25 mg twice a day to 50 mg BID. - Chads score 4, high moderate risk. - Patient is currently a fall risk due to fracture and [place]'s disease, currently being treated with only aspirin and Lovenox. Currently holding other anticoagulation due to fall risk. 6. Possible lung mass. present on admission. Active. - CXR reading as above. - Will require follow up CT with contrast outpatient 7. Chronic Hypertension, chronic, present on admission. Active. - Continue home medications. - Metoprolol 50 mg BID. - Lisinopril 20 mg Daily. 8. Latent Dona's Disease with chronic dysphagia. - Aspiration risk. - Fall risk. 9. Left Tibial fx. - Non weight bearing - PT following. 10. Multiple Electrolyte abnormalities. Present on admission. Resolved. Disposition: Patient medically cleared for discharge to long term facility. - Patient to continue ciprofloxacin for 10 days as an outpatient at 500 mg twice a day by mouth. We will need follow-up at some point with CT without contrast of chest for masslike lesion of left lower lobe. Exam Vital Signs (Last) Date Time Temp Pulse Resp B/P Pulse Ox O2 Delivery O2 Flow Rate FiO2 09/06/16 11:45 36.7 62 18 158/77 98 Room Air 09/05/16 04:10 2.00 Exam General: Alert, Oriented X3, Cooperative, No Acute Distress Head: Normocephalic, atraumatic. External ears normal. Eyes: PERRLA, EOMI. Anicteric sclerae. Mouth: Mouth Normal, Mucous Membranes Dry Neck: Neck supple with full range of motion. Chest & Lungs: Clear to auscultation bilaterally with no crackles, wheezes, or rhonchi. Cardiovascular: Regular Rate/Rhythm, Normal S1, Normal S2, No Murmurs/Rubs/ Gallops Abdomen: Non-tender, Non-distended, No masses, Normoactive bowel tones, Soft Musculoskeletal: Normal Range of Motion Extremities: No cyanosis/clubbing/edema bilaterally Neurological: Slightly slurred speech, right arm and leg weakness, generalized weakness. Test 08/31/16 20:00 08/31/16 21:20 08/31/16 22:00 08/31/16 23:52 Urine Color Yellow (YELLOW) Urine Appearance Cloudy (CLEAR,HAZY) Urine pH 6.0 (5.0-8.0) Urine Specific [place] 1.020 (1.003-1.035) Urine Protein 30mg/dL (NEG,TRACE) Urine Glucose (UA) Negativemg/dL (NEGATIVE) Urine Ketones Negativemg/dL (NEGATIVE) Urine Occult Blood Moderate (NEGATIVE) Urine Nitrite Positive (NEGATIVE) Urine Bilirubin Negative (NEGATIVE) Urine Urobilinogen Normalmg/dL (NORMAL) Urine Leukocyte Esterase Large (NEGATIVE) Urine RBC 3-10/hpf (0-2) Urine WBC >50/hpf (0-5) Urine Epithelial Cells Occasional/hpf (NONE-MOD) Urine Crystals None seen (NONE SEEN) Urine Bacteria Moderate/hpf (NONE-FEW) Urine Hyaline Casts None/lpf (NONE) Urine Granular Casts None seen (NONE SEEN) Urine Waxy Casts None seen (NONE SEEN) Urine Red Blood Cell Casts None seen (NONE SEEN) Urine White Blood Cell Casts None seen (NONE SEEN) Urine Mucus Present (None Seen) Urine Trichomonas None seen (NONE SEEN) Urine Yeast None (NONE SEEN) Urinalysis Comment None Urine Culture Reflexed Indicated Hemoglobin A1c 5.8% (4.8-5.6) Urine Legionella pneumophilia Ag Negative (Negative) Lactic Acid Level 1.1mmol/L (0.4-2.0) Test 09/01/16 08:45 09/02/16 09:30 09/03/16 10:25 09/04/16 22:05 Troponin T < 0.010ug/L (0.0-0.011) Vancomycin Level Trough 9.2mcg/mL Hold [place] Top Tube Received (Received) Prothrombin Time 11.2sec (8.1-12.5) Prothromb Time International Ratio 1.05ratio D-Dimer 5.7mg/L (<0.50) Test 09/05/16 03:35 09/06/16 03:30 Magnesium Level 1.7mg/dL (1.6-2.6) White Blood Count 12.5th/mm3 (3.8-10.1) Red Blood Count 3.64mil/mm3 (4.40-5.80) Hemoglobin 10.7g/dL (13.8-17.2) Hematocrit 32.4% (41.0-50.0) Mean Corpuscular Volume 89.0fL (81-100) Mean Corpuscular Hemoglobin 29.4pg (27.0-35.0) Mean Corpuscular Hemoglobin Concent 33.0% (32.0-37.0) Red Cell Distribution Width 13.2% (12.3-15.4) Platelet Count 213bil/L (150-400) Neutrophils (%) (Auto) 72.7% (40-74) Lymphocytes (%) (Auto) 14.3% (14-46) Monocytes (%) (Auto) 10.5% (4-12) Eosinophils (%) (Auto) 2.2% (0-5) Basophils (%) (Auto) 0.1% (0-3) Band Neutrophils % 0% (1-5) Sodium Level 141mEq/L (134-144) Potassium Level 4.1mEq/L (3.5-5.2) Chloride Level 104mEq/L (97-108) Carbon Dioxide Level 26mmol/L (18-29) Blood Urea Nitrogen 12mg/dL (8-27) Creatinine 0.98mg/dL (0.76-1.27) Estimat Glomerular Filtration Rate 79mL/min (>59) Glucose Level 99mg/dL (60-99) Calcium Level 8.2mg/dL (8.5-10.1) Total Bilirubin 0.3mg/dL (0.0-1.2) Aspartate Amino Transf (AST/SGOT) 11U/L (0-50) Alanine Aminotransferase (ALT/SGPT) 15U/L (0-44) Alkaline Phosphatase 81U/L (25-160) Total Protein 5.1g/dL (6.4-8.4) Albumin 2.6g/dL (3.4-5.0) Procalcitonin 0.41ng/mL (0.00-0.08) Thyroid Stimulating Hormone (TSH) 1.880uIU/mL (0.450-4.500) Discharge Medications Discharge Medications Amlodipine (Amlodipine) 5 Mg Tablet 10 MG PO DAILY Prescribed by: CORNELIUS BOYLE DO Aspirin (Aspirin) 81 Mg Tablet 81 MG PO DAILY (Reported) Atorvastatin Calcium (Atorvastatin Calcium) 20 Mg Tablet 20 MG PO HS Prescribed by: CORNELIUS BOYLE DO Cholecalciferol (Vitamin D3) (Vitamin D3) 2,000 Unit Capsule 2,000 UNIT PO DAILY (Reported) Ciprofloxacin (Cipro) 500 Mg Tablet 500 MG PO BID Prescribed by: SABINA ROLDAN DO Cyanocobalamin (Cyanocobalamin Injection) 1,000 Mcg/1 Ml Vial 1,000 MCG IM Monthly (Reported) Haloperidol (Haloperidol) 5 Mg Tablet 2.5 MG PO BID (Reported) Lisinopril (Lisinopril) 20 Mg Tablet 20 MG PO BID Prescribed by: CORNELIUS BOYLE DO Metoprolol Tartrate (Metoprolol Tartrate) 25 Mg Tablet 25 MG PO BID Prescribed by: CORNELIUS BOYLE DO Terbinafine (Lamisil) 250 Mg Tablet 250 MG PO DAILY Prescribed by: CORNELIUS BOYLE DO As needed Acetaminophen (Acetaminophen) 325 Mg Tablet 650 MG PO Q4H PRN PRN For Fever ( Reported) Hydrocodone-Acetaminophen 5-325 mg (Hydrocodone-Acetaminophen 5-325 mg) 1 Each Tablet 1-2 TABLET PO Q4H PRN PRN For Moderate Pain Prescribed by: CORNELIUS BOYLE DO Additional med instructions New medications: Start Ciprofloxacin 500 mg by mouth twice per day for 10 days total as an outpatient. (last 2 doses on 09/16/16) #20 pills. Followup Plan Discharge Activity: Other (puree diet for dysphagia. ) Follow-up Provider: Michael Spencer MD Follow-up with PCP in: 2 weeks (2-3 weeks. ) Time spent 45 min Attending Statement Patient seen and examined with house staff. Agree with all attached documentation. SABINA ROLDAN DO Sep 06, 2016 15:56 Raghu Jensen MD Sep 08, 2016 15:54
--- NOTE | 2016-09-06 16:21 | NUR ---
Gave access and faxed facesheet to [facility] and [facility] per [employer]. [facility] can not accept patient due to Dona's disease. Updated [employer] and [facility] is working on making [facility] room if possible for accepting this patient.
--- NOTE | 2016-09-06 20:15 | NUR ---
Transfer to [facility]: Report given to Meg López RN. Pt. transferred to room 1010. Pt. alert and oriented. Accompanied by family member. No overt signs or symptoms of distress. No telemetry.
[2016-09-06 21:05] VITALS: BP 144/79; PULSE 75; RESP 18; O2SAT 95
[2016-09-07] MEDS: 0.9% Sodium Chloride 1,000 ML IV SCH (02:44)
[2016-09-07 04:45] VITALS: BP 150/79; PULSE 62; RESP 16; O2SAT 94
--- NOTE | 2016-09-07 05:26 | NUR ---
Admit to Room 1010 Patient transferred to room 1010 from [facility] at 2045 via hospital bed and accompanied by Karey BURDEN and family member. VSS. Patient alert and oriented x2. No complaints of pain. Meds crushed and administered with applesauce. Call light within reach.
--- NOTE | 2016-09-07 10:10 | PCM.DC.MED ---
Discharge Summary Date of Service Sep 07, 2016 Dates of Hospitalization Date of Hospital Admission Aug 31, 2016 at 20:27 Date of Discharge: Sep 07, 2016 Providers: Admitting Physician: Gloria Orellana MD Primary Care Physician: Michael Spencer MD Attending Physician: Gloria Orellana MD Diagnosis at Time of Discharge Diagnosis at Time of Discharge 1. Escherichia coli bacteremia (septicemia), not present on admission. Improved and treated. 2. Urinary tract infection, present on admission. improved and treated. 3. Acute pneumonia, present on admission, Improved. 4. Sepsis, acute, present on admission. resolved. - 5. Acute atrial fibrillation, not present on admission. Rate Controlled. 6. Possible lung mass. present on admission. Active. 7. Hypertension, chronic, present on admission. Active. 8. Latent Dona's Disease with chronic dysphagia. 9. Left Tibial fx. 10. Multiple Electrolyte abnormalities. Present on admission. Resolved. - Consultations ID Dr Morales Procedures XRay, CTs & MRIs PROCEDURE: X-RAY CHEST ONE VIEW, PORTABLE ([id number]) INDICATIONS: FEVER, SOB TECHNIQUE: One view of the chest was acquired. COMPARISON: [facility], CR, XR CHEST 1VW (PORTABLE), 07/05/2016, 17 :06. FINDINGS: Surgical changes and devices: None. Lungs and pleura: No pleural effusions or pneumothorax. Lungs are clear. Mediastinum: Mediastinal contours appear normal. Heart size is normal. Bones and chest wall: No suspicious bony lesions. Overlying soft tissues appear unremarkable. IMPRESSION: No acute cardiopulmonary findings. Dictated by: Susie Rod M.D. on 08/31/2016 at 18:14 Approved by: Susie Rod M.D. on 08/31/2016 at 18:15 ECG 12 Lead Sinus rhythm, Qtc ~470 Brief History as per H&P perfromed by Dr wan on 08/30/16 This is a 76-year-old male who has a history of [place]'s chorea, [place] hypertension who presented to the emergency room from [facility]. He had a fever today also over the past 2 days has been having cough with increasing lethargy and weakness. Patient denies any chest pain. Denies any head congestion or postnasal drainage. notes that he has a roommate at the [facility] who recently has been having similar symptoms with a cough. Patient to get a flu shot this year. His evaluation in the emergency room includes a white count of 16.9 with 91% polys chest x-ray at this point did not show any acute abnormalities. His fever was up to 40.1 O2 sat was 92% on 1.5 L nasal cannula with a respiratory rate of 21 and a blood pressure 135/64. Patient was diagnosed with respiratory syncytial virus, as well as Escherichia coli bacteremia with likely source of urinary tract infection. He also had an incidental finding on CT of the chest with a masslike lesion in the left lower lobe. He was started on broad-spectrum antibiotics of ceftriaxone and levofloxacin, and switched to ertapenem for 3 days. He was started on ciprofloxacin by Dr. Morales of infectious disease. Patient's white count has normalized as well as his pro-calcitonin. His vital signs are stable aside from a slightly elevated blood pressure of 158/77, currently being treated with home medications. Current labs are stable and he has been cleared for discharge to custodial facility to regain history. He will remain on ciprofloxacin for 10 days 500 mg twice a day by mouth. Hospital Course Mr. Alan Orozco is a 76 year old gentleman with history of [place]'s, [place] , and hypertension who presents from [facility] for a fever of 2 days, coughing , lethargy, and weakness. Admitted for possible pneumonia. 1. Escherichia coli bacteremia (septicemia), not present on admission. Improved and treated. - Patient had 1 out of 2 bottles positive for Escherichia coli. Ertapenem by IV for 3 days. - Dr. Morales with infectious disease following, time and recommendations appreciated. - Ciprofloxacin for 3 days +10 days as an outpatient. - EKG showed normal sinus rhythm and a normal QTc interval. 2. Urinary tract infection, present on admission. Improved and treated. - Abx per above. 3. Acute pneumonia, present on admission, Improved. - CXR was negative but CT angio of chest showed masslike consolidation at the left lung base, pneumonia vs mass. Given his fever, we will place on antibiotics to cover both aspiration and healthcare associated pneumonia given the fact he was hospitalized here in June and also lives in a custodial facility. Hx of aspiration and periodontal disease. - Speech consulted. Diet changed to puree. - Dr. Morales with infectious disease is following, time and recommendations appreciated. - MRSA screen negative. - Procalcitonin and white count is now normalized. - CXR per above. - Patient will need follow up CT chest in the near future, most likely as an outpatient. 4. Sepsis, acute, present on admission. resolved. - Meets criteria by temperature of 40.1, elevated white count of 16.9. Most likely secondary to pneumonia given his current cough which may be due to aspiration versus healthcare associated pneumonia. However UTI is also possible. Blood cultures showed Gram variable rods. Urine culture negative but UA showed >50 WBC. Lactic acid 1.1. Procalcitonin 7.12. - This is most likely secondary to Escherichia coli bacteremia. Per #2.. 5. Acute atrial fibrillation, not present on admission. Rate Controlled. - Home metoprolol increased from 25 mg twice a day to 50 mg BID. - Chads score 4, high moderate risk. - Patient is currently a fall risk due to fracture and [place]'s disease, currently being treated with only aspirin and Lovenox. Currently holding other anticoagulation due to fall risk. 6. Possible lung mass. present on admission. Active. - CXR reading as above. - Will require follow up CT with contrast outpatient 7. Chronic Hypertension, chronic, present on admission. Active. - Continue home medications. - Metoprolol 50 mg BID. - Lisinopril 20 mg Daily. 8. Latent [place]'s Disease with chronic dysphagia. - Aspiration risk. - Fall risk. 9. Left Tibial fx. - Non weight bearing - PT following. 10. Multiple Electrolyte abnormalities. Present on admission. Resolved. Disposition: Patient medically cleared for discharge to custodial facility. - Patient to continue ciprofloxacin for 10 days as an outpatient at 500 mg twice a day by mouth. We will need follow-up at some point with CT without contrast of chest for masslike lesion of left lower lobe. Exam Vital Signs (Last) Date Time Temp Pulse Resp B/P Pulse Ox O2 Delivery O2 Flow Rate FiO2 09/07/16 04:45 36.7 62 16 150/79 94 Room Air 09/05/16 04:10 2.00 Exam General: Alert, Oriented X3, Cooperative, No Acute Distress Head: Normocephalic, atraumatic. External ears normal. Eyes: PERRLA, EOMI. Anicteric sclerae. Mouth: Mouth Normal, Mucous Membranes Dry Neck: Neck supple with full range of motion. Chest & Lungs: Clear to auscultation bilaterally with no crackles, wheezes, or rhonchi. Cardiovascular: Regular Rate/Rhythm, Normal S1, Normal S2, No Murmurs/Rubs/ Gallops Abdomen: Non-tender, Non-distended, No masses, Normoactive bowel tones, Soft Musculoskeletal: Normal Range of Motion Extremities: No cyanosis/clubbing/edema bilaterally Neurological: Slightly slurred speech, right arm and leg weakness, generalized weakness. Test 08/31/16 20:00 08/31/16 21:20 08/31/16 22:00 08/31/16 23:52 Urine Color Yellow (YELLOW) Urine Appearance Cloudy (CLEAR,HAZY) Urine pH 6.0 (5.0-8.0) Urine Specific [place] 1.020 (1.003-1.035) Urine Protein 30mg/dL (NEG,TRACE) Urine Glucose (UA) Negativemg/dL (NEGATIVE) Urine Ketones Negativemg/dL (NEGATIVE) Urine Occult Blood Moderate (NEGATIVE) Urine Nitrite Positive (NEGATIVE) Urine Bilirubin Negative (NEGATIVE) Urine Urobilinogen Normalmg/dL (NORMAL) Urine Leukocyte Esterase Large (NEGATIVE) Urine RBC 3-10/hpf (0-2) Urine WBC >50/hpf (0-5) Urine Epithelial Cells Occasional/hpf (NONE-MOD) Urine Crystals None seen (NONE SEEN) Urine Bacteria Moderate/hpf (NONE-FEW) Urine Hyaline Casts None/lpf (NONE) Urine Granular Casts None seen (NONE SEEN) Urine Waxy Casts None seen (NONE SEEN) Urine Red Blood Cell Casts None seen (NONE SEEN) Urine White Blood Cell Casts None seen (NONE SEEN) Urine Mucus Present (None Seen) Urine Trichomonas None seen (NONE SEEN) Urine Yeast None (NONE SEEN) Urinalysis Comment None Urine Culture Reflexed Indicated Hemoglobin A1c 5.8% (4.8-5.6) Urine Legionella pneumophilia Ag Negative (Negative) Lactic Acid Level 1.1mmol/L (0.4-2.0) Test 09/01/16 08:45 09/02/16 09:30 09/03/16 10:25 09/04/16 22:05 Troponin T < 0.010ug/L (0.0-0.011) Vancomycin Level Trough 9.2mcg/mL Hold [place] Top Tube Received (Received) Prothrombin Time 11.2sec (8.1-12.5) Prothromb Time International Ratio 1.05ratio D-Dimer 5.7mg/L (<0.50) Test 09/05/16 03:35 09/06/16 03:30 Magnesium Level 1.7mg/dL (1.6-2.6) White Blood Count 12.5th/mm3 (3.8-10.1) Red Blood Count 3.64mil/mm3 (4.40-5.80) Hemoglobin 10.7g/dL (13.8-17.2) Hematocrit 32.4% (41.0-50.0) Mean Corpuscular Volume 89.0fL (81-100) Mean Corpuscular Hemoglobin 29.4pg (27.0-35.0) Mean Corpuscular Hemoglobin Concent 33.0% (32.0-37.0) Red Cell Distribution Width 13.2% (12.3-15.4) Platelet Count 213bil/L (150-400) Neutrophils (%) (Auto) 72.7% (40-74) Lymphocytes (%) (Auto) 14.3% (14-46) Monocytes (%) (Auto) 10.5% (4-12) Eosinophils (%) (Auto) 2.2% (0-5) Basophils (%) (Auto) 0.1% (0-3) Band Neutrophils % 0% (1-5) Sodium Level 141mEq/L (134-144) Potassium Level 4.1mEq/L (3.5-5.2) Chloride Level 104mEq/L (97-108) Carbon Dioxide Level 26mmol/L (18-29) Blood Urea Nitrogen 12mg/dL (8-27) Creatinine 0.98mg/dL (0.76-1.27) Estimat Glomerular Filtration Rate 79mL/min (>59) Glucose Level 99mg/dL (60-99) Calcium Level 8.2mg/dL (8.5-10.1) Total Bilirubin 0.3mg/dL (0.0-1.2) Aspartate Amino Transf (AST/SGOT) 11U/L (0-50) Alanine Aminotransferase (ALT/SGPT) 15U/L (0-44) Alkaline Phosphatase 81U/L (25-160) Total Protein 5.1g/dL (6.4-8.4) Albumin 2.6g/dL (3.4-5.0) Procalcitonin 0.41ng/mL (0.00-0.08) Thyroid Stimulating Hormone (TSH) 1.880uIU/mL (0.450-4.500) Discharge Medications Discharge Medications Amlodipine (Amlodipine) 5 Mg Tablet 10 MG PO DAILY Prescribed by: CORNELIUS BOYLE DO Aspirin (Aspirin) 81 Mg Tablet 81 MG PO DAILY (Reported) Atorvastatin Calcium (Atorvastatin Calcium) 20 Mg Tablet 20 MG PO HS Prescribed by: CORNELIUS BOYLE DO Cholecalciferol (Vitamin D3) (Vitamin D3) 2,000 Unit Capsule 2,000 UNIT PO DAILY (Reported) Ciprofloxacin (Cipro) 500 Mg Tablet 500 MG PO BID Prescribed by: SABINA ROLDAN DO Cyanocobalamin (Cyanocobalamin Injection) 1,000 Mcg/1 Ml Vial 1,000 MCG IM Monthly (Reported) Haloperidol (Haloperidol) 5 Mg Tablet 2.5 MG PO BID (Reported) Lisinopril (Lisinopril) 20 Mg Tablet 20 MG PO BID Prescribed by: CORNELIUS BOYLE DO Metoprolol Tartrate (Metoprolol Tartrate) 25 Mg Tablet 25 MG PO BID Prescribed by: CORNELIUS BOYLE DO Terbinafine (Lamisil) 250 Mg Tablet 250 MG PO DAILY Prescribed by: CORNELIUS BOYLE DO As needed Acetaminophen (Acetaminophen) 325 Mg Tablet 650 MG PO Q4H PRN PRN For Fever ( Reported) Hydrocodone-Acetaminophen 5-325 mg (Hydrocodone-Acetaminophen 5-325 mg) 1 Each Tablet 1-2 TABLET PO Q4H PRN PRN For Moderate Pain Prescribed by: CORNELIUS BOYLE DO Additional med instructions New medications: Start Ciprofloxacin 500 mg by mouth twice per day for 10 days total as an outpatient. (last 2 doses on 09/16/16) #20 pills. Followup Plan Disposition: [facility] Follow-up plan please follow up with PCP in 1week Discharge Diet: Low fat, Low Sodium, Heart Healthy Discharge Activity: Other (puree diet for dysphagia. ) Follow-up Provider: Michael Spencer MD Follow-up with PCP in: 2 weeks (2-3 weeks. ) Provider: Boyd Toledo DO Follow-up in: 1 week Time spent 35 minutes reviewing chart and coordinating discharge copies to: Boyd Toledo DO; Michael Spencer MD, Melaku MD Sep 07, 2016 10:10
--- NOTE | 2016-09-07 11:22 | NUR ---
Social Work Note - Discharge. PROFESSOR OF SPECIAL EDUCATION identified that pt is able to d/c to [facility] today with Dr Toledo to follow. PROFESSOR OF SPECIAL EDUCATION spoke with pt who states he is feeling better, still weak. He states that he is willing to go to [facility]> PROFESSOR OF SPECIAL EDUCATION spoke with pt's sister Bhavya. She states she will come to the hospital this afternoon. 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 PROFESSOR OF SPECIAL EDUCATION faxed d/c paperwork and copied chart. No other needs identified. Plan: to [facility] [place] (A) by [facility] at 1415. EDNA Louise
--- NOTE | 2016-09-07 14:15 | NUR ---
discharged to [facility], sister is here and aware of plan, pt eating, drinking well. transferring with assist, still NWB on Left leg, report was called to SNF and they were notified that Dr Cote did the surgery on his left leg if they have questions about his brace. He is not having any resp distress, RA 90s, no coughing noted, VSS, report was called to [facility]
== END 2016-09-07 14:24 | DRG 871 ==
LOC: SED 17:37 → EDBD 17:37 → PCC 20:27 → CCU 09-04 22:05 → PCC 09-05 09:31 → SOU 09-06 13:48 → PCC 09-06 13:50 → OSC 09-06 20:31
PROVIDERS: ADMIT Specialist; ATTEND Specialist
PROC: 4A033R1 Measurement of Arterial Saturation, Peripheral, Percutaneous Approach (ICD-10-PCS; principal; 2016-09-04)
DX: A41.51 Sepsis due to Escherichia coli [E. coli] (principal); J12.1 Respiratory syncytial virus pneumonia; G10 Huntington's disease; N39.0 Urinary tract infection, site not specified; R06.00 Dyspnea, unspecified; R91.8 Other nonspecific abnormal finding of lung field; R19.7 Diarrhea, unspecified; I48.91 Unspecified atrial fibrillation; I25.2 Old myocardial infarction; I10 Essential (primary) hypertension; Z87.891 Personal history of nicotine dependence; Z85.46 Personal history of malignant neoplasm of prostate; S82.142D Displaced bicondylar fracture of left tibia, subsequent encounter for closed fracture with routine healing; W19.XXXD Unspecified fall, subsequent encounter; Z91.81 History of falling

== ENCOUNTER 2017-03-04 17:56 | Emergency (ER) | payer MEDICARE ==
[~2017-03-04] VITALS: Ht 177.8 cm; Wt 80.9 kg
[~2017-03-04 17:56] MED LIST changes: +ACET325T51 PO; +CIPR-231 PO
[2017-03-04 18:03] VITALS: BP 138/89; PULSE 73; RESP 17; O2SAT 98
--- NOTE | 2017-03-04 19:09 | DRSVH ---
PROCEDURE: X-RAY CHEST ONE VIEW, PORTABLE ([id number]) INDICATIONS: chest pain TECHNIQUE: One view of the chest was acquired. COMPARISON: [facility], CR, XR CHEST 1VW (PORTABLE), 08/31/2016, 17:44. FINDINGS: Surgical changes and devices: None. Lungs and pleura: No pleural effusions or pneumothorax. Lungs are clear. Mediastinum: Mediastinal contours appear normal. Heart size is normal. Tortuous aorta. Bones and chest wall: No suspicious bony lesions. Overlying soft tissues appear unremarkable. IMPRESSION: No acute disease. Dictated by: Silvia Strange M.D. on 03/04/2017 at 19:07 Approved by: Silvia Strange M.D. on 03/04/2017 at 19:08
[2017-03-04 19:10] LABS: BASOPHILS % (AUTO) 0.1 % (0-3); EOSINOPHILS % (AUTO) 4.4 % (0-5); MONOCYTES % (AUTO) 7.9 % (4-12); Mean Corpuscular Hemoglobin 29.5 pg (27.0-35.0); NEUTROPHILS % (AUTO) 63.5 % (40-74); Platelet Count 198 bil/L (150-400)
[2017-03-04 19:25] LABS: INR 1.03 ratio
--- NOTE | 2017-03-04 19:34 | ED.REPORT ---
HPI-Chest Pain 40 and Over Date of Service Mar 04, 2017 ED Provider: Steve Parra DO Pt is a 77 year old male with a history of A-fib, chronic cough, [place], Mims' s chorea, and HTN who presents to the ED complaining of weakness onset 2 days ago. He c/o associated low blood pressure, and heart rate. He denies fever, chest pain, vomiting, and diarrhea. Per pt, he is on new medication. He presented to Urgent care today and he was referred to ED for further evaluation. Pt reports that he is currently taking metoprolol and was recently prescribed new medication. Nursing Notes Stated Complaint: DECREASED BLOOD PRESSURE/HEART RATE Chief Complaint: Dysrhythmia/Cardiac Nursing Notes Reviewed: Yes Allergies: Coded Allergies: morphine (Verified Allergy, Unknown, 08/31/16) niacin (Verified Allergy, Unknown, 08/31/16) Scheduled Amlodipine (Amlodipine) 5 Mg Tablet 10 MG PO DAILY Aspirin (Aspirin) 81 Mg Tablet 81 MG PO DAILY Atorvastatin Calcium (Atorvastatin Calcium) 20 Mg Tablet 20 MG PO HS Cholecalciferol (Vitamin D3) (Vitamin D3) 2,000 Unit Capsule 2,000 UNIT PO DAILY Ciprofloxacin (Cipro) 500 Mg Tablet 500 MG PO BID Cyanocobalamin (Cyanocobalamin Injection) 1,000 Mcg/1 Ml Vial 1,000 MCG IM Monthly Haloperidol (Haloperidol) 5 Mg Tablet 2.5 MG PO BID Lisinopril (Lisinopril) 20 Mg Tablet 20 MG PO BID Metoprolol Tartrate (Metoprolol Tartrate) 25 Mg Tablet 25 MG PO BID Terbinafine (Lamisil) 250 Mg Tablet 250 MG PO DAILY Scheduled PRN Acetaminophen (Acetaminophen) 325 Mg Tablet 650 MG PO Q4H PRN PRN For Fever Hydrocodone-Acetaminophen 5-325 mg (Hydrocodone-Acetaminophen 5-325 mg) 1 Each Tablet 1-2 TABLET PO Q4H PRN PRN For Moderate Pain General Time Seen by MD: 18:30 Chief Complaint Other (Weakness) Hx Obtained From: Patient Arrived By: Walk-in Sudden in Onset?: No Onset Occurred: 2 days ago Symptom Duration: Since onset Severity: Current: No pain currently Severity: Maximum: No pain Recent Healthcare: Recent doctor visit Similar Sx Previous: No Past Medical History Past Medical History [place] 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 Physical Exam Initial Vital Signs Vital Signs (First) Date Time Temp Pulse Resp B/P Pulse Ox O2 Delivery O2 Flow Rate FiO2 03/04/17 18:03 37.2 73 17 138/89 98 Room Air Initial VS: Reviewed Head / Eyes: Atraumatic, Normocephalic Neck: Supple, Full range of motion Extremities: Vascular intact, Neuro intact Skin: Warm, Dry, No cyanosis Neurologic: Alert, Oriented, Nonfocal Psychiatric: Mood/affect normal, Behavior normal General/Constitutional: Awake, Alert Respiratory / Chest: Atraumatic, Breath sounds NL, Breath sounds = bilat Cardiovascular: Heart rate NL, Regular rhythm, Heart sounds NL Abdomen: Atraumatic, Soft, Non-tender Interpretation & Diagnostics Lab Results Interpretation Result Diagram: 03/04/17 1900 03/04/17 1900 Test 03/04/17 19:00 03/04/17 19:28 03/04/17 20:52 White Blood Count 9.1th/mm3 (3.8-10.1) Red Blood Count 4.55mil/mm3 (4.40-5.80) Hemoglobin 13.4g/dL (13.8-17.2) Hematocrit 39.6% (41.0-50.0) Mean Corpuscular Volume 87.0fL (81-100) Mean Corpuscular Hemoglobin 29.5pg (27.0-35.0) Mean Corpuscular Hemoglobin Concent 33.8% (32.0-37.0) Red Cell Distribution Width 13.0% (12.3-15.4) Platelet Count 198bil/L (150-400) Neutrophils (%) (Auto) 63.5% (40-74) Lymphocytes (%) (Auto) 23.9% (14-46) Monocytes (%) (Auto) 7.9% (4-12) Eosinophils (%) (Auto) 4.4% (0-5) Basophils (%) (Auto) 0.1% (0-3) Prothrombin Time 11.0sec (8.1-12.5) Prothromb Time International Ratio 1.03ratio Sodium Level 138mEq/L (134-144) Potassium Level 4.5mEq/L (3.5-5.2) Chloride Level 102mEq/L (97-108) Carbon Dioxide Level 25mmol/L (18-29) Blood Urea Nitrogen 29mg/dL (8-27) Creatinine 1.27mg/dL (0.76-1.27) Estimat Glomerular Filtration Rate 58mL/min (>59) Glucose Level 104mg/dL (60-99) Calcium Level 9.4mg/dL (8.5-10.1) Magnesium Level 2.0mg/dL (1.6-2.6) Total Bilirubin 0.3mg/dL (0.0-1.2) Aspartate Amino Transf (AST/SGOT) 12U/L (0-50) Alanine Aminotransferase (ALT/SGPT) 11U/L (0-44) Alkaline Phosphatase 106U/L (25-160) Total Protein 6.6g/dL (6.4-8.4) Albumin 3.8g/dL (3.4-5.0) Urine Color Yellow (YELLOW) Urine Appearance Clear (CLEAR,HAZY) Urine pH 5.5 (5.0-8.0) Urine Specific [place] 1.015 (1.003-1.035) Urine Protein Negativemg/dL (NEG,TRACE) Urine Glucose (UA) Negativemg/dL (NEGATIVE) Urine Ketones Negativemg/dL (NEGATIVE) Urine Occult Blood Trace (NEGATIVE) Urine Nitrite Negative (NEGATIVE) Urine Bilirubin Negative (NEGATIVE) Urine Urobilinogen Normalmg/dL (NORMAL) Urine Leukocyte Esterase Negative (NEGATIVE) Urine RBC 0-2/hpf (0-2) Urine WBC 0-5/hpf (0-5) Urine Epithelial Cells Occasional/hpf (NONE-MOD) Urine Crystals None seen (NONE SEEN) Urine Bacteria None/hpf (NONE-FEW) Urine Hyaline Casts None/lpf (NONE) Urine Granular Casts None seen (NONE SEEN) Urine Waxy Casts None seen (NONE SEEN) Urine Red Blood Cell Casts None seen (NONE SEEN) Urine White Blood Cell Casts None seen (NONE SEEN) Urine Mucus None seen (None Seen) Urine Trichomonas None seen (NONE SEEN) Urine Yeast None (NONE SEEN) Urinalysis Comment None Urine Culture Reflexed Not indicated Troponin T 0.010ug/L (0.0-0.011) ECG Interpretation ECG Interpretation: Sinus rhythm with a rate of 68 Left fascicular block Time: 14:39 Interpreted by: ED physician ECG Interpretation: Sinus rhythm with a rate of 61. Left anterior fasciular block No signs of heart block Time: 20:46 Interpreted by: ED physician X-Ray Chest Interpretation Chest Xray Interpretation: IMPRESSION: No acute disease. Dictated by: Silvia Strange M.D. on 03/04/2017 at 19:07 View: Portable, 1 view Interpretation / Wet Read by: Interpret - Radiologist Re-Eval/Medical Decision Source of Hx: Old records Time of Eval: 19:11 Re-Evaluation/Progress Note: Pt rechecked. He is currently asymptomatic. All questions addressed. Time of Eval: 21:45 Re-Evaluation/Progress Note: Pt rechecked. Informed pt of plan for discharge. Pt understands and agrees with plan for discharge. F/U instructions and RTER warnings given. All questions addressed. Consultation : Referral / Consult Name: Michael Spencer MD Call Returned at: 21:41 Family Psychologist: Agrees with eval, Agrees with plan Note: Consulted with pt's PCP. Discussed patient's case. Counseled Regarding: Diagnosis, Lab results, Need for follow-up, When/why to return to ED Discharge & Departure Primary Impression: Bradycardia Additional Impression: Medication reaction Encounter type: initial encounter Qualified Code: T88.7XXA - Unspecified adverse effect of drug or medicament, initial encounter Disposition: Home Discharge Condition All VS Reviewed: Yes Condition: Stable Patient Instructions: Bradycardia (ED) Additional Instructions: I spoke with Dr. Spencer. He recommends that you stop taking the Metoprolol. Call your primary care provider, Dr. Spencer, tomorrow for a follow-up appointment this week. If you have a heart rate greater than 100, you can take a single dose (12.5 mg) of Metoprolol. Return to the Emergency Department for any new or worrisome symptoms. Referrals: Michael Spencer MD (PCP) Scribe Attestation Portions of this note were transcribed by Mimi Howell. I, Dr. Parra personally performed the history, physical exam and medical decision-making; I reviewed and confirmed the accuracy of the information in the transcribed note. Signed by : Rylee Esparza, 03/04/17. copies to: Michael Spencer MD, Todd P DO Mar 04, 2017 19:34 Mimi Zamudio Mar 04, 2017 19:38
[2017-03-04 19:36] VITALS: BP 150/60; PULSE 65; RESP 13; O2SAT 99
[2017-03-04 19:51] LABS: APPEARANCE,URINE CLEAR (CLEAR,HAZY); COLOR,URINE YELLOW (YELLOW); OCCULT BLOOD,URINE TRACE (NEGATIVE); PH,URINE 5.5 (5.0-8.0); UROBILINOGEN,URINE NORMAL (NORMAL)
[2017-03-04 19:52] LABS: TROPONIN T < 0.010 ug/L (0.0-0.011)
[2017-03-04] MEDS ORDERED: 0.9% Sodium Chloride 500 ML IV ONE (21:30)
[2017-03-04 21:31] VITALS: BP 149/77; PULSE 64; RESP 19; O2SAT 95
[2017-03-04 22:23] VITALS: BP 142/77; PULSE 62; RESP 16; O2SAT 99
== END 2017-03-04 22:24 | disposition home or self-care (01) ==
LOC: SED 17:56
DX: R00.1 Bradycardia, unspecified (principal); T44.7X5A Adverse effect of beta-adrenoreceptor antagonists, initial encounter; X58.XXXA Exposure to other specified factors, initial encounter; Y93.9 Activity, unspecified; Y92.9 Unspecified place or not applicable; Y99.8 Other external cause status; I48.91 Unspecified atrial fibrillation; I25.2 Old myocardial infarction; G10 Huntington's disease; I10 Essential (primary) hypertension; Z88.5 Allergy status to narcotic agent; Z88.3 Allergy status to other anti-infective agents; Z87.891 Personal history of nicotine dependence; Z85.46 Personal history of malignant neoplasm of prostate; Z79.82 Long term (current) use of aspirin
CPT/HCPCS: 36415; 71010; 80053; 81000; 83735; 84484; 85025; 85610; 93005; 96360; 99285; J7040